=== PATIENT | female | born 1965 | race American Indian/Alaskan Native ===

== ENCOUNTER 2019-06-20 17:47 | Emergency (ER) | payer SELFPAY ==
[2019-06-20 18:02] VITALS: BP 165/83; PULSE 87; RESP 18; TEMP 36.7; O2SAT 97; BMI 29.2
[2019-06-20 18:10] VITALS: BP 167/83; BP 183/85; BP 205/83; PULSE 71; PULSE 77; PULSE 82
[2019-06-20 18:46] LABS: Basophils % 0.4 %; Eosinophils # 0.2 10^3/uL (0.0-0.8); Eosinophils % 1.9 %; Hematocrit 43.1 % (37.0-47.0); Hemoglobin 13.6 g/dL (11.5-15.3); Lymphocytes # 2.5 10^3/uL (0.8-4.8); Mean Corpuscular HGB Conc 31.6 g/dL (30.0-36.0); Mean Corpuscular Hemoglobin 26.8 pg (28.0-34.0); Mean Corpuscular Volume 84.8 fL (81-99); Mean Platelet Volume 9.7 fL (7.4-10.4); Monocytes # 0.5 10^3/uL (0.2-0.9); Monocytes % 5.2 %; Neutrophils % 65.3 %; Nucleated Red Blood Cells % 0 %; Platelet Count 299 10^3/cmm (130-400); Red Blood Count 5.08 10^6/uL (4.1-5.3); Red Cell Distribution Width 13.2 % (12.1-15.1); White Blood Count 9.1 10^3/uL (4.0-10.0)
[2019-06-20 19:06] LABS: Alanine Aminotransferase 21 U/L (0-33); Albumin Level 4.4 g/dL (3.5-5.2); Alkaline Phosphatase 89 IU/L (35-105); Anion Gap 16.1 (5-19); Aspartate Amino Transferase 16 U/L (0-32); Blood Urea Nitrogen 19 mg/dL (6-20); Calcium 9.9 mg/dL (8.5-10.5); Carbon Dioxide 29 mmol/L (22-29); Chloride 99 mmol/L (98-107); Glomerular Filtration Rate 74.5 mL/min (90-130); Glucose 91 mg/dL (65-115); Osmolality Calculated 286 mOsm/kg (285-295); Potassium 4.1 mmol/L (3.5-5.1); Sodium 140 mmol/L (136-145); Total Bilirubin 0.2 mg/dL (0.15-1.2); Total Protein 7.4 g/dL (6.6-8.7)
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
[2019-06-20 20:22] VITALS: BP 169/88; PULSE 82; RESP 18; O2SAT 100
--- NOTE | 2019-06-20 20:27 | XR_ITS ---
WS: [id number] Portable AP upright chest, 06/20/2019 Clinical Data: cough Comparison: Portable chest, 09/26/2018. Findings: No nodules, masses or effusions are seen. The heart is normal. The pulmonary vascularity is not increased. No pneumonia or pneumothorax is seen. XR/XR chest 1V portable [id number] Impression: Negative chest.
--- NOTE | 2019-06-20 20:27 | ECG_ITS ---
Measurements Intervals [place] Rate: 68 P: 65 AK: 156 QRS: 43 QRSD: 93 T: 34 QT: 406 QTc: 433 SINUS RHYTHM Compared to ECG 09/26/2018 09:32:52 ST (T wave) deviation no longer present Electronically Signed On 06-22-2019 8:59:33 CDT by Shin Bolanos M.D. [email or web address]
[2019-06-20 20:48] LABS: Troponin(5th) Baseline 8 ng/mL (0-10)
[2019-06-20 21:08] LABS: Add Urine Microscopic? NO
[2019-06-20 21:18] LABS: Bilirubin Urine Neg (NEGATIVE); Blood Urine Neg (Negative); Glucose Urine UA Norm (Normal); Ketones Urine Negative (Negative); Leukocyte Esterase Urine Negative (Negative); Nitrate Urine Negative (Negative); Protein Urine Neg (Negative); Specific Gravity, Urine 1.005 (1.005-1.030); Urine Appearance Clear (CLEAR); Urine Color Straw (Yellow); Urobilinogen Urine Norm (Negative); pH Urine 5 (5-7)
[2019-06-20 21:25] VITALS: BP 181/88; PULSE 66; RESP 18; O2SAT 100
[2019-06-20 22:18] VITALS: BP 162/77; PULSE 78; RESP 18; O2SAT 99
--- NOTE | 2019-06-20 22:27 | ECG_ITS ---
Measurements Intervals [place] Rate: 55 P: 57 WI: 156 QRS: 30 QRSD: 91 T: 10 QT: 423 QTc: [address] DEPRESSION [0.05+ mV ST DEPRESSION] Compared to ECG 09/26/2018 09:32:52 Sinus rhythm no longer present ST (T wave) deviation still present Electronically Signed On 06-22-2019 9:05:23 CDT by Shin Bolanos M.D. [email or web address]
[2019-06-20 23:00] VITALS: BP 153/88; PULSE 68; RESP 17; O2SAT 97
== END 2019-06-20 23:00 | disposition home or self-care (01) ==
PROVIDERS: Emergency Medicine; Emergency Provider Emergency Medicine
DX: R07.9 Chest pain, unspecified (principal); I10 Essential (primary) hypertension; F17.200 Nicotine dependence, unspecified, uncomplicated; Z53.29 Procedure and treatment not carried out because of patient's decision for other reasons
CPT/HCPCS: 12345; 36415; 71045; 80053; 81003; 84484; 85025; 93005; 99284

== ENCOUNTER 2020-02-03 17:47 | Emergency (ER) | payer SELFPAY ==
[2020-02-03 17:59] VITALS: BP 172/84; PULSE 91; RESP 18; TEMP 36.9; O2SAT 96; BMI 27.4
[2020-02-03 19:24] VITALS: BP 175/110; O2SAT 100
--- NOTE | 2020-02-03 19:57 | ED_ITS ---
HPI - Dental/Oral General: Chief complaint: Dental/Oral Stated complaint: Face swelling Time Seen by Provider: 02/03/20 19:17 History of Present Illness: HPI Narrative: Patient comes in for pain for the upper molar area the mouth. Left side shows facial swelling. Respirations are even. No airway obstruction is noted. Patient is managing secretions well. Patient has a history of COPD and mood disorder. Review of Systems General: Reports: 10 or more systems reviewed and unremarkable except in HPI and below ENMT: Reports: mouth pain PFSH ED PFSH: Medical History (Updated 02/03/20 @ 19:57 by RIP Elizabeth) HTN (hypertension) Social History (Updated 08/17/19 @ 08:52 by Symone Portillo LPN) Smoking and tobacco status: current every day smoker cigarettes Packs smoked per day: 1 Years cigarettes smoked: 41 Quit status (tobacco): has tried quititng Number of times tried to quit tobacco: 2 Second hand smoke exposure: No Current gender identity: Female Physical Exam Const: COMMON NORMALS: no acute distress and patient oriented x3 GENERAL APPEARANCE: cooperative HENMT: COMMON NORMALS: TM's normal bilaterally and Normal external nose present HEAD & SCALP: other (Left side facial swelling, first molar left upper jaw tenderness. Oral airway is intact. Patient manages secretions well.) NOSE: Normal external nose present TYMPANIC MEMBRANE: TM's normal bilaterally MOUTH: Normal oral and palatal mucosa present THROAT: posterior oropharynx normal Eye: GENERAL EYE: appearance normal, both eyes and all related structures Neck/C-Spine: COMMON NORMALS: full ROM Lymph: LYMPHATIC: no lymphadenopathy noted Chest: COMMONS NORMALS: normal inspection of the chest Resp: COMMON NORMALS: normal respiratory effort EFFORT & INSPECTION: Yes able to speak in complete sentences Cardio: COMMON NORMALS: regular rate and regular rhythm RATE: regular rate RHYTHM: regular rhythm GI: COMMON NORMALS: non-tender Back/Pelvis: COMMON NORMALS: thoracic and lumbar spine normal to inspection Extremity: COMMON NORMALS: normal to inspection Neuro: COMMON NORMALS: patient oriented x3 and moves all extremities Psych: COMMON NORMALS: mental status grossly normal and cooperative Skin: COMMON NORMALS: no rashes or lesions noted GENERAL SKIN EXAM: no rashes or lesions noted Course Vital Signs: Vital signs: Vital Signs Temperature 98.4 F 02/03/20 17:59 Pulse Rate 91 02/03/20 17:59 Respiratory Rate 18 02/03/20 17:59 Blood Pressure 175/110 02/03/20 19:24 Pulse Oximetry 100 02/03/20 19:24 MDM - Dental/Oral MDM Narrative: Medical decision making narrative: Patient comes in with facial swelling and dental pain. On exam we note a dental abscess to the left upper first molar area. Posterior oropharynx is open without any signs of obstruction. Patient is managing secretions well. Differential diagnosis includes but not limited to dental abscess, retropharyngeal abscess, cellulitis of the face. Patient has a noticeable dental abscess. Will treat with antibiot ic. Change antibiotic from amoxicillin to clindamycin 304 times a day. Patient was given 1 dose of Decadron to help with swelling. Patient was recommended to follow-up with dentist for definitive care. Patient reported understanding. Discharge Plan Discharge Patient Disposition: Home Clinical Impression: Dental abscess Condition: Stable Prescriptions: New clindamycin HCl 300 mg capsule 300 mg PO QID 7 Days Qty: 28 RF: 0 ketorolac 10 mg tablet 10 mg PO Q6H PRN (Reason: pain) 5 Days Qty: 14 RF: 0 No Action lisinopril 20 mg tablet 20 mg PO DAILY RF: 0 calcium carbonate [Tums] 200 mg calcium (500 mg) tablet,chewable 200 mg PO BID RF: 0 ibuprofen 200 mg capsule 200 mg PO Q6H PRNRF: 0 B-12 Compliance 1,000 mcg/mL kit 1,000 mcg IM ONCE Qty: 1 RF: 0 hydrochlorothiazide 25 mg tablet 25 mg PO DAILY RF: 0 oxcarbazepine [Trileptal] 150 mg tablet 150 mg PO BID Qty: 60 RF: 2 Discharge Orders: Discharge Order (Routine); Ordered 02/03/20 Ordered By: Rafat Cohen Discharge Diet: Usual diet Discharge Activity: Increase activity as tolerated Patient Instructions: Dental Abscess (ED) Activity Restrictions/Additional Instructions: Stop amoxicillin. Take clindamycin 4 times a day as directed. Use acetaminophen for further pain relief. Use ketorolac 4 times a day for further pain relief. Good oral care. Follow-up with dentist for further care. Return to the emergency department for new concerns. Coding Level of Care Code ED Medical Housekeeper for Asa Ortiz
[2020-02-03 20:03] VITALS: BP 123/84; PULSE 68; RESP 18; O2SAT 99
== END 2020-02-03 20:04 | disposition home or self-care (01) ==
PROVIDERS: Emergency Provider Nurse Practitioner Family
DX: K04.7 Periapical abscess without sinus (principal); I10 Essential (primary) hypertension; F17.210 Nicotine dependence, cigarettes, uncomplicated
CPT/HCPCS: 12345; 99281; 99282

== ENCOUNTER 2020-05-18 22:14 | Emergency (ER) | payer OTHER, SELFPAY ==
[2020-05-18 22:19] VITALS: BP 162/84; PULSE 92; RESP 16; TEMP 37.1; O2SAT 98; BMI 28.0
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
[2020-05-19 00:42] VITALS: BP 150/82; PULSE 70; RESP 18; O2SAT 93
== END 2020-05-19 00:42 | disposition home or self-care (01) ==
PROVIDERS: Emergency Provider Emergency Medicine
DX: S06.0X0A Concussion without loss of consciousness, initial encounter (principal); S30.0XXA Contusion of lower back and pelvis, initial encounter; I10 Essential (primary) hypertension; F17.210 Nicotine dependence, cigarettes, uncomplicated; Y04.8XXA Assault by other bodily force, initial encounter; Y99.0 Civilian activity done for income or pay
CPT/HCPCS: 12345; 70450; 72131; 73080; 74176; 99281; 99283

== ENCOUNTER 2020-09-05 14:40 | Outpatient (CLI) | payer OTHER, SELFPAY ==
--- NOTE | 2020-09-05 14:49 | MM_ITS ---
WS: [id number] BILATERAL SCREENING DIGITAL MAMMOGRAM WITH CAD HISTORY: SCREENING COMPARISON: 04/28/2016 and 04/19/2015 Bilateral CC and MLO views submitted. Computer aided detection analyzed. Breast composition: The breasts are almost entirely fatty. No suspicious masses, microcalcifications or architectural distortion. Dense coarse calcification incompletely visualized due to its posterior position within the LEFT breast has been present on prior studies. MM/[place] [id number] IMPRESSION: BI-RADS: 2-Benign FOLLOW UP: 1 Year Follow-up
== END 2020-09-05 14:41 | disposition home or self-care (01) ==
LOC: RADSHAW 14:47
PROVIDERS: PCP Family Medicine; Visit Provider Family Medicine
DX: Z12.31 Encounter for screening mammogram for malignant neoplasm of breast (principal)
CPT/HCPCS: 77067

== ENCOUNTER 2020-09-12 07:17 | Outpatient (CLI) | payer OTHER, SELFPAY ==
--- NOTE | 2020-09-12 07:34 | US_ITS ---
WS: [id number] ULTRASOUND ABDOMEN LIMITED CLINICAL INFORMATION: EPIGASTRIC ABDOMINAL PAIN COMPARISON: None. FINDINGS: Liver Size: Enlarged Craniocaudal length: 17.1 cm. Echogenicity: Coarse with fatty infiltration Surface nodularity: None. Mass (size and location): None. Bile ducts Intrahepatic ducts: Normal. Common bile duct diameter: 0.6 cm. Gallbladder Cholelithiasis Gallstones: Present Gallbladder sludge: None. Gallbladder wall thickening: Wall difficult to measure due to shadowing. Pericholecystic fluid: None. Sonographic Gerardo sign: Absent. Pancreas Normal as visualized. Right kidney: Simple right renal cysts measuring 1.2 x 1.3 x 1.4 cm superior pole and 2.6 x 2.9 x 2.6 cm in the inferior pole. Hydronephrosis: None. Size: 11.3 cm x 3.5 cm x 4.9 cm. Abdominal aorta and IVC Visualized portions are normal. Ascites: None. US/US abdomen limited [id number] IMPRESSION: 1. Hepatomegaly with diffuse infiltration. 2. Dense cholelithiasis with shadowing. Numerous gallbladder calculi. Gallblad elaina wall not well visualized due to dense shadowing. No pericholecystic fluid. 3. Prominent common bile duct measuring 6.2 mm. This can be further evaluated with MRCP. 4. Simple right renal cysts.
== END 2020-09-12 07:18 | disposition home or self-care (01) ==
PROVIDERS: PCP Family Medicine; Visit Provider Family Medicine
DX: R10.13 Epigastric pain (principal); R16.0 Hepatomegaly, not elsewhere classified; K76.89 Other specified diseases of liver; K80.20 Calculus of gallbladder without cholecystitis without obstruction; Q61.02 Congenital multiple renal cysts
CPT/HCPCS: 76705

== ENCOUNTER 2020-09-12 09:30 | Outpatient (CLI) | payer SELFPAY ==
--- NOTE | 2020-09-12 09:30 | CT_ITS ---
WS: [id number] CT ABDOMEN AND PELVIS WITH CONTRAST HISTORY: N28.89 - Other specified disorders of kidney and ureter TECHNIQUE: Imaging performed of the abdomen and pelvis with IV contrast. Single phase imaging of the abdomen. Coronal and sagittal reformats are submitted. All CT scans at [facility] use at least one of these dose optimization techniques: automated exposure control; mA and/or kV adjustment per patient size (includes targeted exams where dose is matched to clinical indication); or iterativ e reconstruction. IV CONTRAST: Omnipaque 300; 95 mL IV. Oral contrast: Yes. DLP: 1153.1 mGycm COMPARISON: 05/18/2020 Lower thorax: Lung bases are clear. Heart is normal size. Small hiatal hernia. Liver/biliary system: Normal size with no intrahepatic dilatation. Gallbladder: Numerous large stones filling the gallbladder lumen. No adjacent inflammation or wall th ickening. Similar to the prior study. No bile duct dilatation. Pancreas: Normal size pancreas and pancreatic duct. No adjacent inflammation. Spleen: Normal size spleen. No mass or infarct. Adrenal glands: Normal. Right kidney: Several cysts are present in the RIGHT kidney. There is an exophytic low-attenuation ma ss measuring 3.2 x 2.5 from the lateral RIGHT kidney. Hounsfield units are slightly elevated. No sign ificant increase in size since the prior CT of 05/18/2020. Left kidney: Normal. Aorta: Mild atherosclerosis with no aneurysm. Lymphadenopathy: None. Free fluid: None. GI tract: Normal appendix. No GI tract obstruction. No wall thickening or inflammation. Abdominal wall: Unremarkable abdominal wall. No hernia. Pelvis: No free fluid or adenopathy within the pelvis. Prior hysterectomy. Bones: Unremarkable. CT/CT abdomen pelvis w con* [id number] IMPRESSION: 1. Cholelithiasis without acute cholecystitis. Numerous stones are present in the gallbladder. 2. No ascites or adenopathy. 3. No change in the exophytic low-attenuation mass from the RIGHT kidney measu ring 3.2 x 2.5 cm. Mass was noted to be a cyst on a recent ultrasound.
[2020-09-12] MEDS: iohexol 300 mg/mL 50 mL Btl PO (10:20)
[2020-09-12] MEDS: iohexol 300 mg/mL 100 mL Btl IV (11:29)
== END 2020-09-12 09:31 | disposition home or self-care (01) ==
PROVIDERS: PCP Family Medicine; Visit Provider Surgery
DX: N28.89 Other specified disorders of kidney and ureter (principal); K80.20 Calculus of gallbladder without cholecystitis without obstruction
CPT/HCPCS: 74177; Q9967

== ENCOUNTER → 2020-09-21 07:42 | Outpatient (BNVA) | payer OTHER, SELFPAY | PROVIDERS: PCP Family Medicine; Visit Provider Urology | DX: N28.89 Other specified disorders of kidney and ureter (principal); N28.1 Cyst of kidney, acquired | CPT/HCPCS: 81003 ==

== ENCOUNTER 2020-12-19 14:12 | Outpatient (CLI) | payer OTHER, SELFPAY ==
--- NOTE | 2020-12-19 14:20 | CT_ITS ---
WS: [id number] LDCT LUNG CANCER SCREENING TECHNIQUE: Noncontrast CT of the chest with coronal and sagittal reformatted images. CLINICAL INFORMATION: NICOTINE DEPENDENCE, CIGARETTES COMPARISON: None. DLP: 45.87 mGy.cm DIvol: 1.[address] scans at [facility] use at least one of these dose optimization techniques: automat ed exposure control; mA and/or kV adjustment per patient size (includes targeted exams where dose is matched to clinical indication); or iterative reconstruction. FINDINGS: No acute pulmonary infiltrates. No mediastinal or hilar lymphadenopathy. No focal pneumonia or pleura l fluid. No axillary lymphadenopathy. 3 mm calcified nodule right upper lobe. CT/CT lung screening [id number] IMPRESSION: LUNG-RADS: 2-Benign Appearance or Behavior FOLLOW UP: 12 Month: Continue annual screening with LDCT
== END 2020-12-19 14:13 | disposition home or self-care (01) ==
LOC: RAD 14:18
PROVIDERS: PCP Family Medicine; Visit Provider Family Medicine
DX: F17.200 Nicotine dependence, unspecified, uncomplicated (principal); Z12.2 Encounter for screening for malignant neoplasm of respiratory organs
CPT/HCPCS: 71271

== ENCOUNTER 2021-02-01 13:20 | Outpatient (CLI) | payer OTHER, SELFPAY ==
--- NOTE | 2021-02-01 13:27 | XR_ITS ---
WS: [id number] Lumbar spine, 3 views, 02/01/2021 Clinical Data: BACK PAIN,LUMBAR,CHRONIC Comparison: Lateral lumbar spine, 02/15/2014. Findings: No compression fractures or subluxation is seen. There is minimal disc narrowing at L5-S1.. The trans verse processes and SI joints are normal. There are numerous gallstones in the right upper quadrant. XR/XR lumbar spine 2-3V* [id number] Impression: 1. Minimal degenerative disc narrowing at L5-S1. 2. Cholelithiasis.
== END 2021-02-01 13:21 | disposition home or self-care (01) ==
PROVIDERS: PCP Family Medicine; Visit Provider Family Medicine
DX: M54.50 Low back pain, unspecified (principal); G89.29 Other chronic pain; K80.20 Calculus of gallbladder without cholecystitis without obstruction
CPT/HCPCS: 72100

== ENCOUNTER 2021-02-13 12:47 | Outpatient (RCR) | payer OTHER, SELFPAY | END 2021-03-12 23:59 | disposition home or self-care (01) | LOC: SPT 12:47 | PROVIDERS: PCP Family Medicine; Referring Provider Family Medicine; Visit Provider Family Medicine | DX: M54.50 Low back pain, unspecified (principal) | CPT/HCPCS: 97110; 97161 ==

== ENCOUNTER → 2021-04-19 15:21 | Outpatient (BNVA) | payer OTHER, SELFPAY | PROVIDERS: PCP Family Medicine; Visit Provider Obstetrics & Gynecology | DX: Z12.4 Encounter for screening for malignant neoplasm of cervix (principal) | CPT/HCPCS: 87624 ==

== ENCOUNTER 2021-05-30 06:32 | Emergency (ER) | payer OTHER, SELFPAY ==
[2021-05-30 06:40] VITALS: PULSE 77; RESP 18; TEMP 36.6; O2SAT 97; BMI 26.5
--- NOTE | 2021-05-30 06:47 | XRR_ITS ---
PROCEDURE INFORMATION: Exam: XR Chest Exam date and time: 05/30/2021 6:47 AM Age: 56 years old Clinical indication: Angina; Prior surgery; Surgery date: 6+ months; Surgery type: Breast reduction; Patient HX: Chest pain back pain since last pm; Additional info: Dyspnea/cough TECHNIQUE: Imaging protocol: XR of the chest. Views: 1 view. COMPARISON: CR XR chest 1V portable [id number] 06/20/2019 8:45 PM FINDINGS: Lungs: Mild interstitial prominence without acute airspace disease. Pleural spaces: No pleural effusion. Heart/Mediastinum: Normal configuration of the heart. Bones/joints: Unremarkable. When correlating with the previous study, no significant interval changes are present. XR/XR chest 1V portable [id number] IMPRESSION: No acute airspace or pleural disease.
[2021-05-30 07:11] LABS: Basophils # 0.1 10^3/uL (0.0-0.1); Basophils % 0.5 %; Eosinophils # 0.3 10^3/uL (0.0-0.8); Eosinophils % 2.5 %; Hematocrit 44.3 % (37.0-47.0); Hemoglobin 14.4 g/dL (11.5-15.3); Lymphocytes # 2.9 10^3/uL (0.8-4.8); Mean Corpuscular HGB Conc 32.5 g/dL (30.0-36.0); Mean Corpuscular Hemoglobin 28.1 pg (28.0-34.0); Mean Corpuscular Volume 86.5 fl (81-99); Mean Platelet Volume 9.2 fL (7.4-10.4); Monocytes # 0.7 10^3/uL (0.2-0.9); Monocytes % 5.7 %; Neutrophils # 8.02 10^3/uL (1.8-7.7); Nucleated Red Blood Cells % 0 %; Platelet Count 331 10^3/cmm (130-400); Red Blood Count 5.12 10^6/uL (4.1-5.3); Red Cell Distribution Width 13.2 % (12.1-15.1)
--- NOTE | 2021-05-30 07:13 | W.ED.CHESTPA ---
HPI - Chest Pain General: Chief Complaint: Chest Pain Stated Complaint: CHEST PAIN, abd pain, back pain, high bp Time Seen by Provider: 05/30/21 06:35 Source: patient Mode of arrival: ambulatory Limitations: no limitations History of Present Illness: 56-year-old female presents emergency room with complaint of chest discomfort. She states it began last night around midnight she was repositioning herself in bed and felt a sharp pain on the left side of her chest. Since then it is continued. She also been coughing more often recently which she relates to weather changes and allergies. She also has some mild nausea associated with this. She complains of back pain which seems to be also musculoskeletal in her low back. Much of her pain is reproducible with movement and with palpation particularly in the anterior chest MD complaint: chest pain Onset (ago): hour(s) Timing of current episode: episodic Prior episodes: No Onset: during rest Pain location: left chest Pain radiation: none Severity: severe Quality: sharp Relieving factors: rest, remaining still and other (Massaging anterior chest wall) Exacerbating factors: palpation (Point tenderness) and movement Associated symptoms: Reports abdominal pain and other (Back pain nausea); Deny dyspnea or fever(s) Treatment prior to arrival: other (Antihypertensives) Review of Systems Const: Reports: change in appetite; Denies: fever(s), chills, body aches, fatigue or malaise ENMT: Denies: throat pain, ear or mastoid pain, nasal discharge or nasal congestion Card: Reports: chest pain; Denies: edema, dyspnea on exertion or orthopnea Resp: Reports: non-productive cough (Mostly unchanged from chronic baseline); Denies: dyspnea or productive cough GI: Reports: abdominal pain : Denies: flank pain, difficulty voiding, dysuria, urinary frequency or urinary urgency Skin/Breast: Denies: rash or pruritus PFSH ED PFSH: Medical History Benign cyst of right kidney Deficient knowledge of leg surgery home care at age 1 HTN (hypertension) Surgical History H/O bilateral breast reduction surgery H/O oral surgery teeth extraction H/O: Family History Father , at age 78 Heart disease Son Anesthesia complication Hypertension Denies family history of Colon cancer Ovarian cancer Diabetes Clotting disorder Hyperlipidemia Breast cancer Bleeding disorder Uterine cancer Thyroid disease Stroke Social History Marital status: Physical Exam Const: GENERAL APPEARANCE: cooperative and comfortable ORIENTATION/CONSCIOUSNESS: Yes awake, Yes oriented to person, Yes oriented to place and Yes oriented to time HENMT: COMMON NORMALS: normocephalic, atraumatic and hearing grossly normal bilaterally HEAD & SCALP: normocephalic and atraumatic Neck/C-Spine: COMMON NORMALS: no JVD Chest: CHEST: Yes tenderness sternum (Left upper) Resp: COMMON NORMALS: normal respiratory effort, No retractions, No use of accessory muscles and clear to auscultation bilaterally AUSCULTATION: clear to auscultation bilaterally Cardio: COMMON NORMALS: no JVD, regular rate, regular rhythm and No murmurs present (Cardio) RATE: regular rate RHYTHM: regular rhythm GI: COMMON NORMALS: Soft to palpation and No hepatosplenomegaly present AUSCULTATION: Yes normoactive bowel sounds PALPATION: Yes Soft to palpation, No Tenderness to palpation present (GI), No Guarding due to palpation present (GI) and Yes No hepatosplenomegaly present Extremity: COMMON NORMALS: normal to inspection, capillary refill normal, no clubbing, cyanosis or edema, no calf tenderness and no pedal edema Neuro: SENSORIUM/ORIENTATION: Yes oriented to person, Yes oriented to place and Yes oriented to time Skin: COMMON NORMALS: no rashes or lesions noted GENERAL SKIN EXAM: no rashes or lesions noted Course Vital Signs: Vital signs: Vital Signs Temperature 98.0 F 05/30/21 09:59 Pulse Rate 64 05/30/21 09:59 Respiratory Rate 14 05/30/21 09:59 Blood Pressure 155/83 05/30/21 09:59 Pulse Oximetry 98 05/30/21 09:59 MDM - Chest Pain Medical Decision Making Pain reproducible with palpation across anterior chest wall and with deep inspiration. Discharge home diclofenac Medrol Dosepak. Follow-up with primary care doctor within the next week wheezing worsening or changes symptoms otherwise return to the emergency room. Medical Records I reviewed the patient's medical records. Lab Data I reviewed the patient's lab results. : 05/30/21 06:52 05/30/21 06:52 Radiology Impressions Chest X-Ray 05/30/21 06:47 IMPRESSION: No acute airspace or pleural disease. Laboratory Results WBC 12.0 10^3/uL (4.0-10.0) H 05/30/21 06:52 RBC 5.12 10^6/uL (4.1-5.3) 05/30/21 06:52 Hgb 14.4 g/dL (11.5-15.3) 05/30/21 06:52 Hct 44.3 % (37.0-47.0) 05/30/21 06:52 MCV 86.5 fl (81-99) 05/30/21 06:52 MCH 28.1 pg (28.0-34.0) 05/30/21 06:52 MCHC 32.5 g/dL (30.0-36.0) 05/30/21 06:52 RDW 13.2 % (12.1-15.1) 05/30/21 06:52 Plt Count 331 10^3/cmm (130-400) 05/30/21 06:52 MPV 9.2 fL (7.4-10.4) 05/30/21 06:52 Neut % (Auto) 67.0 % 05/30/21 06:52 Lymph % (Auto) 24.0 % 05/30/21 06:52 [place] % (Auto) 5.7 % 05/30/21 06:52 Eos % (Auto) 2.5 % 05/30/21 06:52 Baso % (Auto) 0.5 % 05/30/21 06:52 Neut # (Auto) 8.02 10^3/uL (1.8-7.7) H 05/30/21 06:52 Lymph # (Auto) 2.9 10^3/uL (0.8-4.8) 05/30/21 06:52 [place] # (Auto) 0.7 10^3/uL (0.2-0.9) 05/30/21 06:52 Eos # (Auto) 0.3 10^3/uL (0.0-0.8) 05/30/21 06:52 Baso # (Auto) 0.1 10^3/uL (0.0-0.1) 05/30/21 06:52 Nucleated RBC % (auto) 0 % 05/30/21 06:52 Nucleated RBCs # 0.0 /100WBC 05/30/21 06:52 Sodium 137 mmol/L (136-145) 05/30/21 06:52 Potassium 3.4 mmol/L (3.5-5.1) L 05/30/21 06:52 Chloride 98 mmol/L (98-107) 05/30/21 06:52 Carbon Dioxide 26 mmol/L (22-29) 05/30/21 06:52 Anion Gap 16.4 (5-19) 05/30/21 06:52 BUN 9 mg/dL (6-20) 05/30/21 06:52 Creatinine 0.7 mg/dL (0.5-0.9) 05/30/21 06:52 GFR Calculation 86.2 mL/min (90-130) L 05/30/21 06:52 Glucose 109 mg/dL (65-115) 05/30/21 06:52 Calculated Osmolality 283 mOsm/kg (285-295) L 05/30/21 06:52 Calcium 9.5 mg/dL (8.5-10.5) 05/30/21 06:52 Total Bilirubin 0.2 mg/dL (0.15-1.2) 05/30/21 06:52 AST 12 U/L (0-32) 05/30/21 06:52 ALT 11 U/L (0-33) 05/30/21 06:52 Alkaline Phosphatase 94 IU/L (35-105) 05/30/21 06:52 Troponin T Baseline 6 ng/L (0-10) 05/30/21 06:52 Troponin T 120 Minute 6.00 ng/L (0-10) 05/30/21 09:03 Delta Troponin T 0 ABS# (0-10) 05/30/21 09:03 Total Protein 7.3 g/dL (6.6-8.7) 05/30/21 06:52 Albumin 4.5 g/dL (3.5-5.2) 05/30/21 06:52 Globulin 2.8 g/dL (1.3-4.6) 05/30/21 06:52 Discharge Plan Discharge Patient Disposition: Home Clinical Impression: Acute chest wall pain Condition: Stable Prescriptions: New diclofenac sodium 75 mg tablet,delayed release (DR/EC) 75 mg PO Q12H PRN (Reason: pain) Qty: 20 0RF Medrol ([place]) 4 mg tablets,dose pack See Rx Instructions .ROUTE .COMPLEX Qty: 21 0RF Rx Instructions: orally per package directions Discontinued ibuprofen 200 mg capsule 200 mg PO Q6H PRN (Reason: Pain) 0RF No Action lisinopril 20 mg tablet 20 mg PO DAILY PRN (Reason: Blood Pressure) 0RF calcium carbonate [Tums] 200 mg calcium (500 mg) tablet,chewable 200 mg PO BID PRN (Reason: Pain) 0RF albuterol sulfate 90 mcg/actuation Hfa Aerosol Inhaler 1 - 2 puff INHALATION Q4H PRN (Reason: Shortness Of Breath) 0RF Discharge Orders: Discharge ED (Routine); Ordered 05/30/21 Ordered By: Kulwant Casper Referrals: Oscar Mckeon MD [Primary Care Provider] - Discharge Diet: Usual diet Discharge Activity: Limit activity as instructed Patient Instructions: Opioid Safety Activity Restrictions/Additional Instructions: Use diclofenac as needed. Use albuterol as needed for the cough. Steroid taper follow-up with your primary care doc within the next week. Coding Level of Care Code ED Foot Miter Operator for Asa Fwd Exam Comprehensive
[2021-05-30 07:28] LABS: Troponin(5th) Baseline 6 ng/L (0-10)
[2021-05-30 07:31] LABS: Alanine Aminotransferase 11 U/L (0-33); Albumin Level 4.5 g/dL (3.5-5.2); Alkaline Phosphatase 94 IU/L (35-105); Anion Gap 16.4 (5-19); Aspartate Amino Transferase 12 U/L (0-32); Blood Urea Nitrogen 9 mg/dL (6-20); Calcium 9.5 mg/dL (8.5-10.5); Carbon Dioxide 26 mmol/L (22-29); Chloride 98 mmol/L (98-107); Globulin 2.8 g/dL (1.3-4.6); Glomerular Filtration Rate 86.2 mL/min (90-130); Glucose 109 mg/dL (65-115); Osmolality Calculated 283 mOsm/kg (285-295); Potassium 3.4 mmol/L (3.5-5.1); Sodium 137 mmol/L (136-145); Total Bilirubin 0.2 mg/dL (0.15-1.2); Total Protein 7.3 g/dL (6.6-8.7)
[2021-05-30] MEDS: ketorolac 30 mg/mL INJ IVP (07:35)
[2021-05-30] MEDS: ondansetron 2 mg/ML SDV 2 mL 4 MG IVP (07:35)
[2021-05-30] MEDS: aspirin 81 mg Chew Tablet 324 MG PO (07:35)
--- NOTE | 2021-05-30 08:47 | ECG_ITS ---
[facility] Test Date: 2021-05-30 Pat Name: Radha Camargo Department: Room: Gender: Female Laboratory Engineer: : 1965 Requested By: Kulwant Odom Order Number: [id number] Gabrielle MD: David Ramos M.D. Measurements Intervals [place] Rate: 46 P: 68 MA: 158 QRS: 42 QRSD: 95 T: 40 QT: 481 QTc: 422 Interpretive Statements SINUS BRADYCARDIA Compared to ECG 05/30/2021 06:57:49 Sinus rhythm no longer present Electronically Signed On 05-30-2021 20:53:11 MEDICAL LIAISON by David Ramos M.D. [id number]
[2021-05-30 09:59] VITALS: BP 155/83; PULSE 64; RESP 14; TEMP 36.7; O2SAT 98
[2021-05-30 10:10] LABS: Troponin 5 2HR Delta 0 ABS# (0-10)
--- NOTE | 2021-05-30 12:47 | ECG_ITS ---
[facility] Test Date: 2021-05-30 Pat Name: Radha Camargo Department: Room: Gender: Female Farm Machine Tender: : 1965 Requested By: Kulwant Odom Order Number: [id number] Gabrielle MD: David Ramos M.D. Measurements Intervals [place] Rate: 67 P: 66 ND: 158 QRS: 43 QRSD: 90 T: 37 QT: 414 QTc: 438 Interpretive Statements SINUS RHYTHM POSSIBLE LEFT ATRIAL ENLARGEMENT [-0.1mV P-WAVE IN V1/V2] No previous ECG available for comparison Electronically Signed On 05-30-2021 20:53:15 LAP MACHINE TENDER by David Ramos M.D. [id number]
== END 2021-05-30 10:00 | disposition home or self-care (01) ==
PROVIDERS: Emergency Provider Family Medicine; PCP Family Medicine
DX: R07.89 Other chest pain (principal); I10 Essential (primary) hypertension
CPT/HCPCS: 71045; 80053; 84484; 85025; 93005; 96374; 96375; 99284; J1885; J2405

== ENCOUNTER 2022-01-07 13:08 | Emergency (ER) | payer SELFPAY ==
[2022-01-07 13:10] VITALS: BP 178/78; PULSE 68; RESP 16; TEMP 36.9; O2SAT 98; BMI 26.5
--- NOTE | 2022-01-07 14:10 | XR_ITS ---
WS: [id number] Exam: XR lumbar spine 2-3V* [id number] Date/Time of Exam: 01/07/2022 2:10 PM Reason For Exam: pain after dog attack Comparison 02/01/2021. No acute fracture or dislocation. Disc spaces are preserved. Posterior elements are intact. Numerous large faceted calcifications seen in the right upper abdomen are most likely gallstones. XR/XR lumbar spine 2-3V* [id number] IMPRESSION: 1. No fracture or dislocation. Minimal DJD. 2. Incidentally noted are multiple large gallstones.
--- NOTE | 2022-01-07 14:10 | XR_ITS ---
WS: [id number] Exam: XR tibia fibula LT 2V [id number] Date/Time of Exam: 01/07/2022 2:27 PM Reason For Exam: fall and pain No fracture or dislocation. Normal soft tissue structures. XR/XR tibia fibula LT 2V [id number] IMPRESSION: 1. No acute fracture or dislocation.
--- NOTE | 2022-01-07 15:02 | ED_ITS ---
HPI - Extremity Problem General: Chief complaint: Extremity Injury, Lower Stated complaint: Dog Bite Time Seen by Provider: 01/07/22 13:32 History of Present Illness: This is a 56-year-old patient who is in today for leg pain back pain. She reports that she was breaking up a dog fight and she fell down to the ground on her knees and scraped her legs. She reports that her back is feeling sore she has chronic back pain but it is feeling like its twisted. She denies any numbness or tingling of her extremities. She denies any loss of bowel or bladder control. She denies that she was bitten by the dog. She reports that she is up-to-date on tetanus. Associated symptoms: Deny fever(s) Review of Systems Const: Denies: fever(s) or chills Musc: Reports: extremity pain (Left lower extremity pain) Skin/Breast: Reports: other (Small superficial abrasions left lower extremity- no bleeding) [facility] ED PFSH: Medical History Benign cyst of right kidney Deficient knowledge of leg surgery home care at age 1 HTN (hypertension) Psychiatric care Surgical History H/O bilateral breast reduction surgery H/O oral surgery teeth extraction H/O: x 2 Family History Father , at age 78 Heart disease Son Anesthesia complication Hypertension Denies family history of Colon cancer Ovarian cancer Diabetes Clotting disorder Hyperlipidemia Breast cancer Bleeding disorder Uterine cancer Thyroid disease Stroke Social History Smoking and tobacco status: current every day smoker cigarettes Years cigarettes smoked: 44 Smoking risk assessment/counseling performed?: No Alcohol intake: never Desire information about alcohol rehabilitation?: No Counseling given: No Desire information about substance/drug rehabilitation?: No Counseling given: No Marital status: Physical Exam Const: COMMON NORMALS: no acute distress, patient oriented x3 and alert Resp: COMMON NORMALS: normal respiratory effort and No use of accessory muscles Back/Pelvis: OTHER: Minor tenderness to palpation bilateral lumbar paraspinal musculature. No obvious bony or soft tissue deformities appreciated. Extremity: OTHER: Left lower extremity there are a couple superficial abrasions noted to the arshad and the lateral calf. No obvious foreign bodies. Patient is walking with a slight limp however she is able to bear weight on the leg. No obvious bony deformity appreciated. Neuro: COMMON NORMALS: patient oriented x3 SENSORIUM/ORIENTATION: Yes alert Course Vital Signs: Vital signs: Vital Signs Temperature 98.5 F 01/07/22 13:10 Pulse Rate 64 01/07/22 15:38 Respiratory Rate 16 01/07/22 15:38 Blood Pressure 178/78 01/07/22 13:10 Pulse Oximetry 99 01/07/22 15:38 Oxygen Delivery Me thod 01/07/22 13:10 MDM - Extremity (Nontraumatic) Medical Decision Making Client is in today after having fallen trying to break up a dog fight. She reports that she has abrasions on her leg and also may be twisted her back. She does offer that she has chronic back problems. She denies any paresthesias, weakness, loss of bowel or bladder control. Physical exam findings reveal superficial abrasions noted to her left lower leg. No obvious bony or soft tissue deformity noted to her low back. X-ray of lumbar spine and also tib-fib are both negative for any acute fracture or dislocation incidental noting on her lumbar spine she has multiple large gallstones. I did advise her of the gallstones advised her if she should have any issues follow-up with her primary care provider. We discussed keeping the wounds clean and dry at home. Return to the emergency department as needed for new or worsening symptoms. Lab Data Radiology Impressions Lumbar Spine X-Ray 01/07/22 14:10 IMPRESSION: 1. No fracture or dislocation. Minimal DJD. 2. Incidentally noted are multiple large gallstones. Tibia/Fibula X-Ray 01/07/22 14:10 IMPRESSION: 1. No acute fracture or dislocation. Discharge Plan Discharge Patient Disposition: Home Clinical Impression: Asymptomatic gallstones, Acute leg pain, Low back pain Contusion Qualifiers: Contusion area: lower leg Condition: Stable Prescriptions: No Action calcium carbonate [Tums] 200 mg calcium (500 mg) tablet,chewable 200 mg PO BID PRN (Reason: Pain) hydroxyzine pamoate 25 mg capsule 25 mg PO .q hs PRN (Reason: anxiety) Qty: 30 2RF Rx Instructions: Take one capsule at bedtime, if needed, for anxiety ibuprofen 800 mg tablet 800 mg PO Q8H PRN oxycodone-acetaminophen 5-325 mg tablet 1 tab PO Q4H PRN (Reason: pain) 4 Days Qty: 20 0RF lisinopril 20 mg tablet 20 mg PO DAILY PRN (Reason: Blood Pressure) Qty: 30 0RF albuterol sulfate 90 mcg/actuation Hfa Aerosol Inhaler 1 - 2 puff INHALATION Q4H PRN (Reason: Shortness Of Breath) Discharge Orders: Discharge ED (Routine); Ordered 01/07/22 Ordered By: Thais Pickett Discharge Diet: Usual diet Discharge Activity: Increase activity as tolerated Patient Instructions: Contusion Activity Restrictions/Additional Instructions: Keep your abrasions clean and dry. Use alternating ice and heat to help with discomfort to your low back and also your leg. Follow-up with your primary care provider next week. Return to the ER as needed for new or worsening symptoms. Stand Alone Forms: Work/School Release Coding Level of Care Code ED Psychiatric Aides Teacher for Asa Ortiz
[2022-01-07 15:38] VITALS: PULSE 64; RESP 16; O2SAT 99
== END 2022-01-07 15:39 | disposition home or self-care (01) ==
PROVIDERS: Emergency Provider Nurse Practitioner Family
DX: M54.50 Low back pain, unspecified (principal); S80.812A Abrasion, left lower leg, initial encounter; K80.80 Other cholelithiasis without obstruction; F17.210 Nicotine dependence, cigarettes, uncomplicated; I10 Essential (primary) hypertension; W18.30XA Fall on same level, unspecified, initial encounter
CPT/HCPCS: 72100; 73590; 99283

== ENCOUNTER → 2022-03-24 14:26 | Outpatient (BNVA) | payer SELFPAY | PROVIDERS: Visit Provider Family Medicine | DX: I10 Essential (primary) hypertension (principal); R53.83 Other fatigue | CPT/HCPCS: 80053; 80061; 84443; 85025; 87086 ==

== ENCOUNTER 2022-06-17 23:24 | Emergency (ER) | payer SELFPAY ==
[2022-06-17 23:34] VITALS: BP 259/92; PULSE 56; RESP 16; TEMP 36.7; O2SAT 99; BMI 28.0
--- NOTE | 2022-06-17 23:34 | W.ED.ABDPA2 ---
HPI - Abdominal Pain General: Chief Complaint: Abdominal Pain Stated Complaint: back/abd pain Time Seen by Provider: 06/17/22 23:34 History of Present Illness: 57-year-old female comes in today with complaints of abdominal pain radiating to the back. Patient has a history of renal stones and is concerned she is trying to pass a kidney stone patient also has a history of blood pressure problems, PTSD, chronic back pain, COPD, borderline personality, mood disorder, and nicotine dependence. Patient reports this evening about 7:00 she started having abdominal pain radiating to the back. Patient's had no abdominal surgeries 2 C-sections. Patient reports surgery on the foot due to a foreign body but no other significant medical problems. Patient takes lisinopril for her blood pressure and did take the medication today. Associated Symptoms: Reports nausea; Denies constipation, diarrhea, fever(s) and vomiting Review of Systems Const: Denies: fever(s) Eyes: Denies: change in vision Card: Reports: chest pain Resp: Denies: dyspnea GI: Reports: abdominal pain and nausea; Denies: vomiting, diarrhea or constipation : Reports: flank pain Skin/Breast: Denies: rash Neuro: Denies: headache(s) PFSH ED PFSH: Medical History Benign cyst of right kidney Deficient knowledge of leg surgery home care at age 1 HTN (hypertension) Psychiatric care Surgical History H/O bilateral breast reduction surgery H/O oral surgery teeth extraction H/O: x 2 Family History Father , at age 78 Heart disease Son Anesthesia complication Hypertension Denies family history of Colon cancer Ovarian cancer Diabetes Clotting disorder Hyperlipidemia Breast cancer Bleeding disorder Uterine cancer Thyroid disease Stroke Social History Smoking and tobacco status: current every day smoker cigarettes Years cigarettes smoked: 44 Smoking risk assessment/counseling performed?: No Alcohol intake: never Desire information about alcohol rehabilitation?: No Counseling given: No Desire information about substance/drug rehabilitation?: No Counseling given: No Marital status: Physical Exam Const: COMMON NORMALS: alert HENMT: COMMON NORMALS: normocephalic HEAD & SCALP: normocephalic Neck/C-Spine: COMMON NORMALS: full ROM Chest: COMMONS NORMALS: normal palpation of entire chest wall Resp: COMMON NORMALS: normal respiratory effort and clear to auscultation bilaterally AUSCULTATION: clear to auscultation bilaterally Cardio: COMMON NORMALS: regular rate and regular rhythm RATE: regular rate RHYTHM: regular rhythm GI: COMMON NORMALS: Soft to palpation PALPATION: Yes Soft to palpation and Yes Tenderness to palpation present (GI) : COMMON NORMALS: Yes no CVA tenderness BLADDER/KIDNEY EXAM: Yes no CVA tenderness Back/Pelvis: COMMON NORMALS: no CVA tenderness Extremity: COMMON NORMALS: no pedal edema Neuro: SENSORIUM/ORIENTATION: Yes alert Skin: COMMON NORMALS: turgor normal GENERAL SKIN EXAM: turgor normal Course Vital Signs: Vital signs: Vital Signs Temperature 98.1 F 06/17/22 23:34 Pulse Rate 49 L 06/18/22 00:30 Respiratory Rate 16 06/18/22 00:30 Blood Pressure 210/83 06/18/22 00:30 Pulse Oximetry 95 06/18/22 00:30 Oxygen Delivery Me thod 06/17/22 23:34 MDM - Abdominal Pain Medical Decision Making 57-year-old female comes in today with abdominal pain radiating to the back. Patient reported a history of renal stones. Patient reports pain started about 7:00 this evening. Patient appears nontoxic. Patient appears in moderate pain. Abdomen soft with some tenderness in the right upper quadrant. No CVA tenderness is noted. Skin is warm and dry. Vital signs are normal except for elevated blood pressure. Differential diagnosis includes but not limited to renal calculi, gallbladder disease, pancreatitis, ACS. CT of the abdomen pelvis noted gallstones and mild gallbladder wall thickening. Ultrasound noted gallstones and a positive Gerardo sign suggestive of possible cholecystitis. Laboratory values were unremarkable except for some mild elevation of white blood cells of 10,000. Patient be placed on some Augmentin for possible cholecystitis, and dicyclomine for gallbladder pain and spasms, and Zofran for nausea. Patient will be referred to surgeon for further evaluation and treatment and return to the ER for worsening symptoms. Patient reported understanding of care plan and need for follow-up or return to the ER. Lab Data 06/17/22 23:45 06/17/22 23:45 Labs/Radiology: Radiology Impressions Abdomen/Pelvis CT 06/17/22 23:43 IMPRESSION: 1. Negative for acute inflammatory process in the abdomen or pelvis 2. Cholelithiasis with gallbladder wall thickening, ultrasound could further evaluate this. 3. Right kidney cysts, negative for follow-up advised. COMMENTS: Consistent with the [employer]'s Incidental Findings Committee white paper (J Am Demetri Radiol 2018): Any incidental renal lesion less than 1 cm or classified as too small to characterize, or any incidental cystic renal lesion characterized as simple-appearing, is likely benign. No follow-up imaging is recommended for these lesions per consensus recommendations based on imaging criteria. Gallbladder Ultrasound 06/18/22 00:17 IMPRESSION: 1. Cholelithiasis with a nonmobile gallbladder neck stone with gallbladder wall thickening to 5 mm and a positive Gerardo's sign concerning for cholecystitis. 2. Two right kidney cysts measuring up to 3 cm. Laboratory Results WBC 10.7 10^3/uL (4.0-10.0) H 06/17/22 23:45 RBC 5.09 10^6/uL (4.1-5.3) 06/17/22 23:45 Hgb 13.8 g/dL (11.5-15.3) 06/17/22 23:45 Hct 42.2 % (37.0-47.0) 06/17/22 23:45 MCV 82.9 fl (81-99) 06/17/22 23:45 MCH 27.1 pg (28.0-34.0) L 06/17/22 23:45 MCHC 32.7 g/dL (30.0-36.0) 06/17/22 23:45 RDW 12.6 % (12.1-15.1) 06/17/22 23:45 Plt Count 305 10^3/cmm (130-400) 06/17/22 23:45 MPV 9.6 fL (7.4-10.4) 06/17/22 23:45 Neut % (Auto) 66.6 % 06/17/22 23:45 Lymph % (Auto) 26.3 % 06/17/22 23:45 Haskell % (Auto) 3.8 % 06/17/22 23:45 Eos % (Auto) 2.5 % 06/17/22 23:45 Baso % (Auto) 0.5 % 06/17/22 23:45 Neut # (Auto) 7.11 10^3/uL (1.8-7.7) 06/17/22 23:45 Lymph # (Auto) 2.8 10^3/uL (0.8-4.8) 06/17/22 23:45 Haskell # (Auto) 0.4 10^3/uL (0.2-0.9) 06/17/22 23:45 Eos # (Auto) 0.3 10^3/uL (0.0-0.8) 06/17/22 23:45 Baso # (Auto) 0.1 10^3/uL (0.0-0.1) 06/17/22 23:45 Nucleated RBC % (auto) 0 % 06/17/22 23:45 Nucleated RBCs # 0.0 /100WBC 06/17/22 23:45 Sodium 139 mmol/L (136-145) 06/17/22 23:45 Potassium 3.2 mmol/L (3.5-5.1) L 06/17/22 23:45 Chloride 101 mmol/L (98-107) 06/17/22 23:45 Carbon Dioxide 24 mmol/L (22-29) 06/17/22 23:45 Anion Gap 17.2 (5-19) 06/17/22 23:45 BUN 10 mg/dL (6-20) 06/17/22 23:45 Creatinine 0.7 mg/dL (0.5-0.9) 06/17/22 23:45 GFR Calculation 85.9 mL/min (90-130) L 06/17/22 23:45 Glucose 111 mg/dL (65-115) 06/17/22 23:45 Calculated Osmolality 288 mOsm/kg (285-295) 06/17/22 23:45 Calcium 9.1 mg/dL (8.5-10.5) 06/17/22 23:45 Total Bilirubin 0.2 mg/dL (0.15-1.2) 06/17/22 23:45 AST 17 U/L (0-32) 06/17/22 23:45 ALT 16 U/L (0-33) 06/17/22 23:45 Alkaline Phosphatase 99 U/L (35-105) 06/17/22 23:45 Troponin T Baseline 6 ng/L (0-10) 06/17/22 23:45 NT-Pro-B Natriuret Pep 205 pg/mL (0-125) H 06/17/22 23:45 Total Protein 6.8 g/dL (6.6-8.7) 06/17/22 23:45 Albumin 4.3 g/dL (3.5-5.2) 06/17/22 23:45 Globulin 2.5 g/dL (1.3-4.6) 06/17/22 23:45 Lipase 34 U/L (13-60) 06/17/22 23:45 Discharge Plan Discharge Patient Disposition: Home Clinical Impression: Cholelithiases Qualifiers: Cholelithiasis location: gallbladder Cholecystitis presence: without cholecystitis Biliary obstruction: without biliary obstruction Qualified Code(s): K80.20 - Calculus of gallbladder without cholecystitis without obstruction Condition: Stable Prescriptions: New dicyclomine 20 mg tablet 20 mg PO QID PRN (Reason: abdominal pain) Qty: 30 0RF amoxicillin-pot clavulanate 875-125 mg tablet 1 tab PO BID Qty: 14 0RF ondansetron 4 mg tablet,disintegrating 4 mg PO Q8H PRN (Reason: nausea and vomiting) Qty: 10 0RF No Action calcium carbonate [Tums] 200 mg calcium (500 mg) tablet,chewable 200 mg PO BID PRN (Reason: Pain) ibuprofen 800 mg tablet 800 mg PO Q8H PRN albuterol sulfate 90 mcg/actuation HFA aerosol inhaler 1 - 2 puff INHALATION Q4H PRN (Reason: Shortness Of Breath) Qty: 8.5 1RF lisinopril 20 mg tablet See Rx Instructions .ROUTE .COMPLEX Qty: 30 2RF Dose Instruction: TAKE 1 TABLET BY MOUTH EVERY DAY NEEDED FOR BLOOD PRESSURE Rx Instructions: TAKE 1 TABLET BY MOUTH EVERY DAY NEEDED FOR BLOOD PRESSURE Discharge Orders: Discharge ED (Routine); Ordered 06/18/22 Ordered By: Rafat Cohen Discharge Diet: Advance as tolerated Discharge Activity: Increase activity as tolerated Patient Instructions: Gallstones (ED), Low Fat Diet (ED) Activity Restrictions/Additional Instructions: Avoid heavy diet with a lot of fats. Clear liquid diet until pain completely resolves. Drink plenty of water and fluids. Follow-up with surgeon for further evaluation and treatment. Case management will contact you with follow-up appointment. Return to ER for worsening symptoms such as uncontrolled pain, inability to hold fluids down, fever greater than 100.4, or new concerns. Coding Level of Care Code ED Community Health Representative for Asa Ortiz
--- NOTE | 2022-06-17 23:43 | CTR_ITS ---
PROCEDURE INFORMATION: Exam: CT Abdomen And Pelvis Without Contrast Exam date and time: 06/17/2022 11:51 PM Age: 57 years old Clinical indication: Abdominal pain; Generalized; Prior surgery; Surgery type: Breast reduction. Csection; Patient HX: C/O diffuse abd and low back pain. History of renal stones. ; Additional info: Abd pain TECHNIQUE: Imaging protocol: Computed tomography of the abdomen and pelvis without contrast. Radiation optimization: All CT scans at this facility use at least one of these dose optimization techniques: automated exposure control; mA and/or kV adjustment per patient size (includes targeted exams where dose is matched to clinical indication); or iterative reconstruction. REPORTING DATA: Count of CT and Cardiac NM exams in prior 12 months: This patient has received 0 known CTs and 0 known cardiac nuclear medicine studies in the 12 months prior to the current study. COMPARISON: CT abdomen pelvis w con* [id number] 09/12/2020 11:23 AM RADIATION DOSE METRICS: Total DLP (mGy-cm): 564.43 FINDINGS: Liver: Normal. No mass. Gallbladder and bile ducts: Cholelithiasis with gallbladder wall thickening, ultrasound could further evaluate this. Pancreas: Normal. No ductal dilation. Spleen: Normal. No splenomegaly. Adrenal glands: Normal. No mass. Kidneys and ureters: Right kidney cysts, negative for follow-up advised. Stomach and bowel: Unremarkable. No obstruction. No mucosal thickening. Appendix: No evidence of appendicitis. Intraperitoneal space: Unremarkable. No free air. No significant fluid collection. Vasculature: Unremarkable. No abdominal aortic aneurysm. Lymph nodes: Unremarkable. No enlarged lymph nodes. Urinary bladder: Unremarkable as visualized. Reproductive: Unremarkable as visualized. Bones/joints: Unremarkable. No acute fracture. Soft tissues: Unremarkable. CT/CT kidney stone [id number] IMPRESSION: 1. Negative for acute inflammatory process in the abdomen or pelvis 2. Cholelithiasis with gallbladder wall thickening, ultrasound could further evaluate this. 3. Right kidney cysts, negative for follow-up advised. COMMENTS: Consistent with the [employer]'s Incidental Findings Committee white paper (J Am Demetri Radiol 2018): Any incidental renal lesion less than 1 cm or classified as too small to characterize, or any incidental cystic renal lesion characterized as simple-appearing, is likely benign. No follow-up imaging is recommended for these lesions per consensus recommendations based on imaging criteria.
--- NOTE | 2022-06-18 00:03 | ECG_ITS ---
[facility] Test Date: 2022-06-18 Pat Name: Radha Camargo Department: Room: Gender: Female Sample Grader: : 1965 Requested By: Rafat Baldwni Order Number: [id number] Gabrielle MD: Shin Bolanos M.D. Measurements Intervals Girard Rate: 48 P: 60 ME: 154 QRS: 47 QRSD: 101 T: 44 QT: 461 QTc: 416 Interpretive Statements SINUS BRADYCARDIA MINIMAL ST DEPRESSION [0.025+ mV ST DEPRESSION] Compared to ECG 05/30/2021 08:52:43 ST (T wave) deviation now present Electronically Signed On 06-18-2022 15:11:29 BILL SORTER by Shin Bolanos M.D. [id number]
[2022-06-18] MEDS: fentaNYL 50 mcg/mL INJ 2mL IVP (00:06)
[2022-06-18] MEDS: ondansetron 2 mg/ML SDV 2 mL 4 MG IVP (00:06)
[2022-06-18 00:17] VITALS: RESP 19
--- NOTE | 2022-06-18 00:17 | USR_ITS ---
PROCEDURE INFORMATION: Exam: US Abdomen, Limited; Right Upper Quadrant Exam date and time: 06/18/2022 12:30 AM Age: 57 years old Clinical indication: Abdominal pain; Patient HX: Ruq pain radiating to the back today. ; Additional info: Cholelithiasis TECHNIQUE: Imaging protocol: Real time ultrasound of the abdomen with image documentation. Limited exam focused on the right upper quadrant. COMPARISON: US abdomen limited [id number] 09/12/2020 7:57 AM FINDINGS: Liver: Normal. No masses. Gallbladder: Cholelithiasis with a nonmobile gallbladder neck stone with gallbladder wall thickening to 5 mm and a positive Gerardo's sign concerning for cholecystitis. Biliary ducts: Normal. No stones. No dilation. Pancreas: Visualized pancreas is unremarkable. Right kidney: Two right kidney cysts measuring up to 3 cm. US/US gall bladder [id number] IMPRESSION: 1. Cholelithiasis with a nonmobile gallbladder neck stone with gallbladder wall thickening to 5 mm and a positive Gerardo's sign concerning for cholecystitis. 2. Two right kidney cysts measuring up to 3 cm.
[2022-06-18 00:18] LABS: Basophils # 0.1 10^3/uL (0.0-0.1); Basophils % 0.5 %; Eosinophils # 0.3 10^3/uL (0.0-0.8); Eosinophils % 2.5 %; Hematocrit 42.2 % (37.0-47.0); Hemoglobin 13.8 g/dL (11.5-15.3); Lymphocytes # 2.8 10^3/uL (0.8-4.8); Lymphocytes % 26.3 %; Mean Corpuscular HGB Conc 32.7 g/dL (30.0-36.0); Mean Corpuscular Hemoglobin 27.1 pg (28.0-34.0); Mean Corpuscular Volume 82.9 fl (81-99); Mean Platelet Volume 9.6 fL (7.4-10.4); Monocytes # 0.4 10^3/uL (0.2-0.9); Monocytes % 3.8 %; Neutrophils # 7.11 10^3/uL (1.8-7.7); Neutrophils % 66.6 %; Nucleated Red Blood Cells % 0 %; Platelet Count 305 10^3/cmm (130-400); Red Blood Count 5.09 10^6/uL (4.1-5.3); Red Cell Distribution Width 12.6 % (12.1-15.1); White Blood Count 10.7 10^3/uL (4.0-10.0)
[2022-06-18 00:30] VITALS: BP 210/83; PULSE 49; RESP 16; O2SAT 95
[2022-06-18 00:47] LABS: Troponin(5th) Baseline 6 ng/L (0-10)
[2022-06-18 00:52] LABS: Alanine Aminotransferase 16 U/L (0-33); Albumin Level 4.3 g/dL (3.5-5.2); Alkaline Phosphatase 99 U/L (35-105); Anion Gap 17.2 (5-19); Aspartate Amino Transferase 17 U/L (0-32); Blood Urea Nitrogen 10 mg/dL (6-20); Calcium 9.1 mg/dL (8.5-10.5); Carbon Dioxide 24 mmol/L (22-29); Chloride 101 mmol/L (98-107); Globulin 2.5 g/dL (1.3-4.6); Glomerular Filtration Rate 85.9 mL/min (90-130); Glucose 111 mg/dL (65-115); Lipase 34 U/L (13-60); NT Pro B Type Natriuretic Pept 205 pg/mL (0-125); Osmolality Calculated 288 mOsm/kg (285-295); Potassium 3.2 mmol/L (3.5-5.1); Sodium 139 mmol/L (136-145); Total Bilirubin 0.2 mg/dL (0.15-1.2); Total Protein 6.8 g/dL (6.6-8.7)
[2022-06-18] MEDS: dicyclomine 20 mg Tablet PO (01:35)
[2022-06-18] MEDS: amoxicillin-clav 875-125 mg Tablet 1 TAB PO (01:35)
[2022-06-18 01:36] VITALS: BP 159/59; PULSE 58; RESP 14; O2SAT 98
--- NOTE | 2022-06-18 08:40 | DCPLANNER ---
Addendum entered by Lorrie Espino 06/20/22 08:32: Patient had a followup appointment scheduled with general surgery - patient did attend appointment. Original Note: department sales manager had message to schedule a follow up appointment for patient with general surgery. department sales manager sent patients information to the front office staff at general surgery. Patients information will be printed and reviewed. Clinic will call patient with appointment information.
--- NOTE | 2022-06-24 13:05 | DCPLANNER ---
06.21.22 - patient called due to no primary care physician - patient stated that she has an appointment scheduled with Dr. Li at [facility].
== END 2022-06-18 01:41 | disposition home or self-care (01) ==
PROVIDERS: Emergency Provider Nurse Practitioner Family
DX: K80.20 Calculus of gallbladder without cholecystitis without obstruction (principal); F17.210 Nicotine dependence, cigarettes, uncomplicated; I10 Essential (primary) hypertension
CPT/HCPCS: 74176; 76705; 80053; 83690; 83880; 84484; 85025; 93005; 96374; 96375; 99285; J2405; J3010

== ENCOUNTER 2022-07-29 02:46 | Emergency (ER) | payer SELFPAY ==
[2022-07-29 02:59] VITALS: PULSE 63; RESP 24; TEMP 36.8; O2SAT 99; BMI 27.1
--- NOTE | 2022-07-29 03:05 | CTR_ITS ---
PROCEDURE INFORMATION: Exam: CT Abdomen And Pelvis Without Contrast Exam date and time: 07/29/2022 3:24 AM Age: 57 years old Clinical indication: Abdominal pain; Prior surgery; Surgery type: Breast reduction. Csection; Patient HX: C/O bilateral flank pain with dysuria. Known cholelithiasis. TECHNIQUE: Imaging protocol: Computed tomography of the abdomen and pelvis without contrast. Radiation optimization: All CT scans at this facility use at least one of these dose optimization techniques: automated exposure control; mA and/or kV adjustment per patient size (includes targeted exams where dose is matched to clinical indication); or iterative reconstruction. REPORTING DATA: Count of CT and Cardiac NM exams in prior 12 months: This patient has received [address] and 0 known cardiac nuclear medicine studies in the 12 months prior to the current study. COMPARISON: CT kidney stone [id number] 06/17/2022 11:51 PM RADIATION DOSE METRICS: Total DLP (mGy-cm): 516.94 FINDINGS: Lungs: The lung bases are clear. No effusion Liver: There is fatty infiltration of the liver. Gallbladder and bile ducts: There is cholelithiasis without wall thickening or pericholecystic fluid. No bile duct stone. Pancreas: Normal. No ductal dilation. Spleen: Normal. No splenomegaly. Adrenal glands: Normal. No mass. Kidneys and ureters: There are multiple right renal cysts, largest measures 4.3 cm. No nephroureterolithiasis or urinary bladder stone. Stomach and bowel: Unremarkable. No obstruction. No mucosal thickening. Appendix: No evidence of appendicitis. Intraperitoneal space: Unremarkable. No free air. No significant fluid collection. Vasculature: Unremarkable. No abdominal aortic aneurysm. Lymph nodes: Unremarkable. No enlarged lymph nodes. Urinary bladder: There is urinary bladder wall thickening with pericystic fat stranding. Reproductive: Unremarkable as visualized. Bones/joints: Unremarkable. No acute fracture. Soft tissues: Unremarkable. CT/CT kidney stone [id number] IMPRESSION: 1. Acute cystitis. 2. No nephroureterolithiasis or urinary bladder stone. 3. Fatty infiltration of the liver. 4. Cholelithiasis without cholecystitis . COMMENTS: Consistent with the [employer]'s Incidental Findings Committee white paper (J Am Demetri Radiol 2018): Any incidental renal lesion less than 1 cm or classified as too small to characterize, or any incidental cystic renal lesion characterized as simple-appearing, is likely benign. No follow-up imaging is recommended for these lesions per consensus recommendations based on imaging criteria.
--- NOTE | 2022-07-29 03:09 | ED_ITS ---
HPI - Female Genitourinary General: Chief complaint: Urogenital-Female Stated complaint: Possible Kidney Stones\Lot of Pain Time Seen by Provider: 07/29/22 02:59 Source: patient Mode of arrival: ambulatory Limitations: no limitations History of Present Illness: 57-year-old female who states that she been having back and flank pain states been going on all day. States she is also had some abdominal and chest pain she also feels like it is radiating from her back she had history of kidney stones states this feels similar. She rates her pain an 8 out of 10 denies any vomiting denies any diarrhea she denies any worsening proving factors she denies any fevers or dysuria. Associated symptoms: Reports abdominal pain; Deny headache(s) Review of Systems Const: Denies: fever(s) or chills Eyes: Reports: eye discomfort ENMT: Denies: throat pain Card: Denies: chest pain Resp: Denies: dyspnea GI: Reports: abdominal pain : Reports: flank pain Musc: Reports: back pain Skin/Breast: Denies: rash Neuro: Denies: headache(s) Psych: Denies: depression Jaime/Lymph: Denies: easy bruising All/Imm: Denies: urticaria PFSH ED PFSH: Medical History Benign cyst of right kidney Deficient knowledge of leg surgery home care at age 1 HTN (hypertension) Psychiatric care Surgical History H/O bilateral breast reduction surgery H/O oral surgery teeth extraction H/O: x 2 Family History Father , at age 78 Heart disease Son Anesthesia complication Hypertension Denies family history of Colon cancer Ovarian cancer Diabetes Clotting disorder Hyperlipidemia Breast cancer Bleeding disorder Uterine cancer Thyroid disease Stroke Social History Smoking and tobacco status: current every day smoker cigarettes Years cigarettes smoked: 44 Smoking risk assessment/counseling performed?: No Alcohol intake: never Desire information about alcohol rehabilitation?: No Counseling given: No Desire information about substance/drug rehabilitation?: No Counseling given: No Marital status: Physical Exam Const: COMMON NORMALS: no acute distress, patient oriented x3 and healthy appearing HENMT: COMMON NORMALS: normocephalic and atraumatic HEAD & SCALP: normocephalic and atraumatic Eye: COMMON NORMALS: conjunctivae normal CONJUNCTIVA: Yes conjunctivae normal Neck/C-Spine: COMMON NORMALS: full ROM and supple Chest: COMMONS NORMALS: normal inspection of the chest and normal palpation of entire chest wall Resp: COMMON NORMALS: normal respiratory effort, No retractions, No use of accessory muscles and clear to auscultation bilaterally AUSCULTATION: clear to auscultation bilaterally Cardio: COMMON NORMALS: regular rate, regular rhythm and No murmurs present (Cardio) RATE: regular rate RHYTHM: regular rhythm GI: COMMON NORMALS: Normal to inspection, nondistended, normoactive bowel sounds present, Soft to palpation, non-tender and no masses PALPATION: Yes Soft to palpation Extremity: COMMON NORMALS: normal to inspection and full ROM Neuro: COMMON NORMALS: patient oriented x3, moves all extremities and no focal motor deficits Psych: COMMON NORMALS: mental status grossly normal, Normal thought process present and cooperative THOUGHT PROCESS: Normal thought process present Skin: COMMON NORMALS: no rashes or lesions noted and no wounds GENERAL SKIN EXAM: no rashes or lesions noted Course Vital Signs: Vital signs: Vital Signs Temperature 98.3 F 07/29/22 02:59 Pulse Rate 68 07/29/22 05:04 Respiratory Rate 18 07/29/22 05:04 Blood Pressure 168/82 07/29/22 05:04 Pulse Oximetry 98 07/29/22 05:04 Oxygen Delivery Me thod Room Air 07/29/22 03:58 MDM - Female Medical Decision Making Patient presents here with abdominal back pain likely from her cholelithiasis blood work CAT scan are otherwise normal she is well-appearing here feels much i mproved she is stable for discharge we will get her follow-up with surgery she is return if worsening she understands agrees to plan. Lab Data 07/29/22 03:16 07/29/22 03:16 Radiology Impressions Abdomen/Pelvis CT 07/29/22 03:05 IMPRESSION: 1. Acute cystitis. 2. No nephroureterolithiasis or urinary bladder stone. 3. Fatty infiltration of the liver. 4. Cholelithiasis without cholecystitis . COMMENTS: Consistent with the [employer]'s Incidental Findings Committee white paper (J Am Demetri Radiol 2018): Any incidental renal lesion less than 1 cm or classified as too small to characterize, or any incidental cystic renal lesion characterized as simple-appearing, is likely benign. No follow-up imaging is recommended for these lesions per consensus recommendations based on imaging criteria. Laboratory Results WBC 9.6 10^3/uL (4.0-10.0) 07/29/22 03:16 RBC 5.37 10^6/uL (4.1-5.3) H 07/29/22 03:16 Hgb 14.5 g/dL (11.5-15.3) 07/29/22 03:16 Hct 44.5 % (37.0-47.0) 07/29/22 03:16 MCV 82.9 fl (81-99) 07/29/22 03:16 MCH 27.0 pg (28.0-34.0) L 07/29/22 03:16 MCHC 32.6 g/dL (30.0-36.0) 07/29/22 03:16 RDW 12.8 % (12.1-15.1) 07/29/22 03:16 Plt Count 293 10^3/cmm (130-400) 07/29/22 03:16 MPV 9.5 fL (7.4-10.4) 07/29/22 03:16 Neut % (Auto) 67.6 % 07/29/22 03:16 Lymph % (Auto) 25.3 % 07/29/22 03:16 [place] % (Auto) 4.5 % 07/29/22 03:16 Eos % (Auto) 1.8 % 07/29/22 03:16 Baso % (Auto) 0.6 % 07/29/22 03:16 Neut # (Auto) 6.50 10^3/uL (1.8-7.7) 07/29/22 03:16 Lymph # (Auto) 2.4 10^3/uL (0.8-4.8) 07/29/22 03:16 [place] # (Auto) 0.4 10^3/uL (0.2-0.9) 07/29/22 03:16 Eos # (Auto) 0.2 10^3/uL (0.0-0.8) 07/29/22 03:16 Baso # (Auto) 0.1 10^3/uL (0.0-0.1) 07/29/22 03:16 Nucleated RBC % (auto) 0 % 07/29/22 03:16 Nucleated RBCs # 0.0 /100WBC 07/29/22 03:16 Sodium 139 mmol/L (136-145) 07/29/22 03:16 Potassium 3.4 mmol/L (3.5-5.1) L 07/29/22 03:16 Chloride 101 mmol/L (98-107) 07/29/22 03:16 Carbon Dioxide 24 mmol/L (22-29) 07/29/22 03:16 Anion Gap 17.4 (5-19) 07/29/22 03:16 BUN 7 mg/dL (6-20) 07/29/22 03:16 Creatinine 0.8 mg/dL (0.5-0.9) 07/29/22 03:16 GFR Calculation 73.7 mL/min (90-130) L 07/29/22 03:16 Glucose 114 mg/dL (65-115) 07/29/22 03:16 Calculated Osmolality 287 mOsm/kg (285-295) 07/29/22 03:16 Calcium 9.2 mg/dL (8.5-10.5) 07/29/22 03:16 Total Bilirubin 0.2 mg/dL (0.15-1.2) 07/29/22 03:16 AST 14 U/L (0-32) 07/29/22 03:16 ALT 13 U/L (0-33) 07/29/22 03:16 Alkaline Phosphatase 90 U/L (35-105) 07/29/22 03:16 Troponin T Baseline 6 ng/L (0-10) 07/29/22 03:16 Total Protein 7.3 g/dL (6.6-8.7) 07/29/22 03:16 Albumin 4.2 g/dL (3.5-5.2) 07/29/22 03:16 Globulin 3.1 g/dL (1.3-4.6) 07/29/22 03:16 Lipase 33 U/L (13-60) 07/29/22 03:16 Urine Color Yellow (Yellow) 07/29/22 04:07 Urine Appearance Clear (CLEAR) 07/29/22 04:07 Urine pH 6.5 (5-7) 07/29/22 04:07 Ur Specific [place] 1.010 (1.005-1.030) 07/29/22 04:07 Urine Protein 1+ (Negative) H 07/29/22 04:07 Urine Glucose (UA) Norm (Normal) 07/29/22 04:07 Urine Ketones Negative (Negative) 07/29/22 04:07 Urine Blood Neg (Negative) 07/29/22 04:07 Urine Nitrate Negative (Negative) 07/29/22 04:07 Urine Bilirubin Neg (Negative) 07/29/22 04:07 Urine Urobilinogen Norm mg/dL (Negative) 07/29/22 04:07 Ur Leukocyte Esterase Negative (Negative) 07/29/22 04:07 Urine RBC 0-4 /hpf (0-2) H 07/29/22 04:07 Urine WBC 5-10 /hpf (0-5) H 07/29/22 04:07 Ur Squamous Epith Cells 0-4 /hpf (0-5) H 07/29/22 04:07 Amorphous Sediment Not Reportable 07/29/22 04:07 Urine Bacteria Trace /hpf (NONE) 07/29/22 04:07 Discharge Plan Discharge Patient Disposition: Home Clinical Impression: Cholelithiasis Condition: Stable Prescriptions: New ondansetron 4 mg tablet,disintegrating 4 mg PO Q6H PRN (Reason: nausea and vomiting) Qty: 14 0RF methocarbamol 750 mg tablet 750 mg PO Q6H PRN (Reason: spasms) Qty: 20 0RF No Action calcium carbonate [Tums] 200 mg calcium (500 mg) tablet,chewable 200 mg PO BID PRN (Reason: Pain) ibuprofen 800 mg tablet 800 mg PO Q8H PRN lisinopril 20 mg tablet See Rx Instructions .ROUTE .COMPLEX Qty: 30 2RF Dose Instruction: TAKE 1 TABLET BY MOUTH EVERY DAY NEEDED FOR BLOOD PRESSURE Rx Instructions: TAKE 1 TABLET BY MOUTH EVERY DAY NEEDED FOR BLOOD PRESSURE albuterol sulfate 90 mcg/actuation HFA aerosol inhaler 1 - 2 puff INHALATION Q4H PRN (Reason: Shortness Of Breath) Qty: 8.5 1RF dicyclomine 20 mg tablet 20 mg PO QID PRN (Reason: abdominal pain) Qty: 30 0RF amoxicillin-pot clavulanate 875-125 mg tablet 1 tab PO BID Qty: 14 0RF ondansetron 4 mg tablet,disintegrating 4 mg PO Q8H PRN (Reason: nausea and vomiting) Qty: 10 0RF Discharge Orders: Discharge ED (Routine); Ordered 07/29/22 Ordered By: Rachel Yap Referrals: Jeff Mckeon DO [Physician] - 1-3 days Bebe Li DO [Primary Care Provider] - Discharge Diet: Advance as tolerated Discharge Activity: Resume usual activity Patient Instructions: Gallstones (ED) Coding Level of Care Code ED Biotechnician for Asa Ortiz
--- NOTE | 2022-07-29 03:09 | ECG_ITS ---
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 Measurements Intervals [place] Rate: 59 P: 73 [place]: 153 QRS: 59 QRSD: 101 T: 29 QT: 443 QTc: 442 Interpretive Statements SINUS BRADYCARDIA WITH SINUS ARRHYTHMIA MINIMAL ST DEPRESSION [0.025+ mV ST DEPRESSION] Compared to ECG 06/18/2022 00:03:28 No significant changes Electronically Signed On 07-29-2022 14:49:20 CDT by aDvid Ramos M.D. [id number]
[2022-07-29] MEDS: ondansetron 2 mg/ML SDV 2 mL 4 MG IVP (03:23)
[2022-07-29] MEDS: sodium chloride 0.9% 1,000 ML 999 ML IV (03:23)
[2022-07-29] MEDS: HYDROmorphone 1 mg/mL INJ 1 mL 0.5 MG IVP (03:23)
[2022-07-29] MEDS: hyDRALAzine 20 mg/mL INJ 1 mL 10 MG IVP (03:23)
[2022-07-29 03:24] LABS: Basophils # 0.1 10^3/uL (0.0-0.1); Basophils % 0.6 %; Eosinophils # 0.2 10^3/uL (0.0-0.8); Eosinophils % 1.8 %; Hematocrit 44.5 % (37.0-47.0); Hemoglobin 14.5 g/dL (11.5-15.3); Lymphocytes # 2.4 10^3/uL (0.8-4.8); Lymphocytes % 25.3 %; Mean Corpuscular HGB Conc 32.6 g/dL (30.0-36.0); Mean Corpuscular Volume 82.9 fl (81-99); Mean Platelet Volume 9.5 fL (7.4-10.4); Monocytes # 0.4 10^3/uL (0.2-0.9); Monocytes % 4.5 %; Neutrophils % 67.6 %; Nucleated Red Blood Cells % 0 %; Platelet Count 293 10^3/cmm (130-400); Red Blood Count 5.37 10^6/uL (4.1-5.3); Red Cell Distribution Width 12.8 % (12.1-15.1); White Blood Count 9.6 10^3/uL (4.0-10.0)
[2022-07-29 03:43] LABS: Troponin(5th) Baseline 6 ng/L (0-10)
[2022-07-29 03:44] LABS: Alanine Aminotransferase 13 U/L (0-33); Albumin Level 4.2 g/dL (3.5-5.2); Alkaline Phosphatase 90 U/L (35-105); Anion Gap 17.4 (5-19); Aspartate Amino Transferase 14 U/L (0-32); Blood Urea Nitrogen 7 mg/dL (6-20); Calcium 9.2 mg/dL (8.5-10.5); Carbon Dioxide 24 mmol/L (22-29); Chloride 101 mmol/L (98-107); Globulin 3.1 g/dL (1.3-4.6); Glomerular Filtration Rate 73.7 mL/min (90-130); Glucose 114 mg/dL (65-115); Lipase 33 U/L (13-60); Osmolality Calculated 287 mOsm/kg (285-295); Potassium 3.4 mmol/L (3.5-5.1); Sodium 139 mmol/L (136-145); Total Bilirubin 0.2 mg/dL (0.15-1.2); Total Protein 7.3 g/dL (6.6-8.7)
[2022-07-29 03:58] VITALS: BP 178/71; PULSE 75; RESP 18; O2SAT 97
[2022-07-29 04:33] VITALS: BP 157/58; PULSE 65; RESP 17; O2SAT 97
[2022-07-29 04:42] LABS: Add Urine Culture? No; Add Urine Microscopic? YES; Bacteria Urine TRACE /hpf; Bilirubin Urine Neg (Negative); Blood Urine Neg (Negative); Glucose Urine UA Norm (Normal); Ketones Urine Negative (Negative); Leukocyte Esterase Urine Negative (Negative); Nitrate Urine Negative (Negative); Protein Urine 1+ (Negative); RBC Urine 0-4 /hpf (0-2); Squamous Epithelial Cell Urine 0-4 /hpf (0-5); Urine Appearance Clear (CLEAR); Urine Color Yellow (Yellow); Urobilinogen Urine Norm (Negative); pH Urine 6.5 (5-7)
[2022-07-29 05:04] VITALS: BP 168/82; PULSE 68; RESP 18; O2SAT 98
--- NOTE | 2022-07-29 09:57 | DCPLANNER ---
Addendum entered by Lorrie Espino 07/30/22 09:46: complex human resources manager received the following message from the general surgery clinic regarding follow up appointment: Due to patient having a balance over $3k, we cannot see her until she has something worked out with FA.. Mailing letter and FA packet to patient. Original Note: complex human resources manager had message to schedule a follow up appointment for patient with general surgery. complex human resources manager sent patients information to the front office staff at general surgery. Patients information will be printed and reviewed. Clinic will call patient with appointment information.
== END 2022-07-29 05:18 | disposition home or self-care (01) ==
PROVIDERS: Emergency Provider Emergency Medicine; PCP Family Medicine
DX: K80.20 Calculus of gallbladder without cholecystitis without obstruction (principal); N30.00 Acute cystitis without hematuria; F17.210 Nicotine dependence, cigarettes, uncomplicated; I10 Essential (primary) hypertension
CPT/HCPCS: 74176; 80053; 81001; 83690; 84484; 85025; 93005; 96361; 96374; 96375; 99285; J0360; J1170; J2405; J7030

== ENCOUNTER 2025-04-04 04:30 | Emergency (ER) | payer SELFPAY ==
[2025-04-04] VITALS (8 sets, daily range): BP systolic 121–242; BP diastolic 67–118; PULSE 58–89; RESP 16; TEMP 36.4; O2SAT 94–100; BMI 25.0
--- NOTE | 2025-04-04 04:36 | ECG_ITS ---
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
--- NOTE | 2025-04-04 04:47 | CT_ITS ---
WS: [id number] CT HEAD NONCONTRAST HISTORY: dizzy TECHNIQUE: Contiguous axial imaging performed through the brain. Bone and soft tissue windows. Sagittal and coronal reformats reviewed. All CT scans at [facility] use at least one of these dose optimization techniques: automated exposure control; mA and/or kV adjustment per patient size (includes targeted exams where dose is matched to clinical indication); or iterative reconstruction. DLP: 1091.74 mGy.cm COMPARISON: 05/18/2020 No acute intracranial hemorrhage, midline shift or mass effect. Mild symmetric atrophy. Mild small vessel changes. No large territory infarct. Ventricles: Normal size with no hydrocephalus. No inferior displacement of the cerebellar tonsils. Paranasal sinuses: As visualized are clear. Mastoid air cells: Well pneumatized. Calvarium and scalp: Skull is intact with no soft tissue edema or swelling. CT/CT head wo con* [id number] IMPRESSION: 1. Stable noncontrast CT head since 05/18/2020. 2. No acute intracranial hemorrhage or edema. 3. Mild stable cerebral atrophy and small vessel changes.
[2025-04-04 04:54] LABS: Hematocrit 44.8 % (36-47); Hemoglobin 14.80 g/dL (11.27-16.99); Mean Corpuscular HGB Conc 33.0 g/dL (30-55); Mean Corpuscular Hemoglobin 27.1 pg (27-33); Mean Corpuscular Volume 82.1 fl (85-98); Nucleated Red Blood Cells % 0 %; Platelet Count 278 10^3/cmm (157-399); Red Blood Count 5.46 10^6/uL (3.85-5.65); White Blood Count 8.47 10^3/uL (3.29-11.43)
[2025-04-04 05:01] LABS: INR 0.95 (0.8-1.2); Prothrombin Time 13.30 SECONDS (12.1-14.9)
[2025-04-04 05:02] LABS: Partial Thromboplastin Time 25.6 SECONDS (23.9-36.7)
[2025-04-04] MEDS: LORazepam 2 mg/mL INJ 1 mL 0.5 MG IVP (05:11)
[2025-04-04 05:16] LABS: Alanine Aminotransferase 10 U/L (0-33); Albumin Level 4.6 g/dL (3.5-5.2); Alkaline Phosphatase 95 U/L (35-105); Anion Gap 18.2 (5-19); Aspartate Amino Transferase 14 U/L (0-32); Blood Urea Nitrogen 14 mg/dL (8-23); Calcium 9.5 mg/dL (8.5-10.5); Carbon Dioxide 25 mmol/L (22-29); Chloride 99 mmol/L (98-107); Globulin 3.0 g/dL (1.3-4.6); Glucose 129 mg/dL (65-115); Magnesium 2.2 mg/dL (1.7-2.3); Osmolality Calculated 290 mOsm/kg (285-295); Potassium 3.2 mmol/L (3.5-5.1); Sodium 139 mmol/L (136-145); Total Protein 7.6 g/dL (6.6-8.7)
--- NOTE | 2025-04-04 05:19 | ED_ITS ---
HPI - Nausea/Vomiting/Diarrhea 2 General: Chief complaint: Nausea/Vomiting/Diarrhea Stated complaint: nausea and vomiting Time Seen by Provider: 04/04/25 04:37 History of Present Illness: Patient is a 60-year-old female who presents with acute onset of vertigo and near-syncope. She reports that she was lying down to go to sleep when she experienced severe spinning sensation, which was accompanied by nausea. The patient thought these symptoms as potentially related to hypotension based on previous similar episodes. She attempted to self-treat by consuming approximately half a teaspoon of salt with water, but her symptoms worsened. She began to feel like she was going to lose consciousness and called emergency services. While speaking with the dispatcher, she felt herself starting to lose consciousness but was instructed to keep talking to maintain alertness. The patient reports that this current episode is the worst she has ever experienced, with significant tremors. She notes a pattern of positional vertigo, particularly when lying on her right side. The patient states she has been managing her blood pressure with marijuana due to inability to afford prescription medications after losing her job. She also reports marijuana exposure shortly before this episode. She reports previous treatment with lisinopril 40mg but expresses concerns about medication allergies. Related Data Home Medications ?Medication ?Instructions ?Recorded ?Confirmed ibuprofen 800 mg tablet 800 mg PO Q8H PRN 09/19/21 0 08/26/23 Previous Rx's ?Medication ?Instructions ?Recorded albuterol sulfate 90 mcg/actuation 1 - 2 puff inhalati on Q4H PRN 08/29/22 aerosol inhaler Shortness Of Breath #8.5 gra ms lisinopril 40 mg tablet 40 mg .Route DAILY #30 tabs 08/26/23 amlodipine 10 mg tablet 10 mg PO DAILY #30 tabs 03/14 07/05 meclizine 25 mg tablet 25 mg PO TID #30 tabs Allergies Allergy/AdvReac Type Severity Reaction Status Date / Time lactose Allergy Unknown diarrhea Verified 08/26/23 08:34 acetaminophen (From Percocet) Allergy ADR-Dizzine Verified 08/26/23 08:34 ss clobetasol Allergy ALGY-Hives Verified 08/26/23 08:34 codeine Allergy ALGY-Difficulty Verified 08/26/23 08:34 Breathing morphine Allergy ALGY-Difficulty Verified 08/26/23 08:34 Breathing oxycodone (From Percocet) Allergy ADR-Dizzine Verified 08/26/23 08:34 ss prednisone Allergy ALGY-Redness Verified 08/26/23 08:34 of Skin PFSH ED 2 PFSH: Medical History Deficient knowledge of leg surgery home care at age 1 Benign cyst of right kidney HTN (hypertension) Surgical History H/O: x 2 H/O bilateral breast reduction surgery H/O oral surgery teeth extraction Family History Father , at age 78 Heart disease Son Anesthesia complication Hypertension Denies family history of Colon cancer Ovarian cancer Diabetes Clotting disorder Hyperlipidemia Breast cancer Bleeding disorder Uterine cancer Thyroid disease Stroke Social History Smoking and tobacco/nicotine status: current every day tobacco/nicotine user cigarettes Years cigarettes smoked: 44 Alcohol intake: never Substance/Drug Use: never Marital status: Physical Exam 2 Const: COMMON NORMALS: no acute distress and alert GENERAL APPEARANCE: c ooperative; not ill appearing and not frail appearing HENMT: COMMON NORMALS: normocephalic, atraumatic and Normal external nose present HEAD & SCALP: normocephalic and atraumatic FACE & SINUS: normal facial exam and face symmetric NOSE: Normal external nose present Eye: COMMON NORMALS: Equal, round and reactive pupils present and EOMs intact bilaterally PUPIL: Yes Equal, round and reactive pupils present Neck/C-Spine: GENERAL: Yes trachea midline Chest: CHEST: Yes Symmetrical chest wall rise Resp: COMMON NORMALS: normal respiratory effort, No retractions, No use of accessory muscles and clear to auscultation bilaterally AUSCULTATION: clear to auscultation bilaterally Cardio: COMMON NORMALS: regular rate and regular rhythm RATE: regular rate RHYTHM: regular rhythm GI: COMMON NORMALS: Normal to inspection, nondistended, normoactive bowel sounds present Extremity: COMMON NORMALS: no pedal edema Neuro: CATA COMA SCALE: document GCS findings [place] coma scale eye opening: Spontaneous [place] coma scale verbal response: Orientated [place] coma scale motor response: Obey commands C[place] coma scale total score: 15 S ENSORIUM/ORIENTATION: Yes alert COORDINATION/BALANCE: worfxo-ns-[id number] test normal and sgeq-by-vfvh test normal SPEECH: speech normal SENSORY EXAM: Y es extremities (intact) MOTOR EXAM: Pronator motor function not present C OORDINATION: hxsonl-eh-xinm test normal and lhib-wc-[id number] test normal Psych: COMMON NORMALS: speech normal SPEECH: Yes normal speech Skin: COMMON NORMALS: no rashes or lesions noted GENERAL SKIN EXAM: no rashes or lesions noted Course 2 Vital Signs: Vital signs: Vital Signs Temperature 97.5 F L 04/04/25 04:32 Pulse Rate 62 04/04/25 07:45 Respiratory Rate 16 04/04/25 04:32 Blood Pressure 121/69 04/04/25 07:45 Pulse Oximetry 98 04/04/25 07:45 Oxygen Delivery Me thod Room Air 04/04/25 07:35 MDM - Nausea/Vomiting/Diarrhea Medical Decision Making 60-year-old female with acute onset of vertigo after smoking marijuana at home. Her blood pressure was quite high on arrival, 242/118. is improving now following medication administration. Head CT is negative. Hemoglobin is 14.8. Potassium is 3.2. It is repleted orally liver enzymes are normal. Her NIH score is 0. She was able to ambulate in the ER. Dizziness is improved. Head CT appears negative. Awaiting official radiology read. She will be discharged. Short course of meclizine for vertigo Lab Data 04/04/25 04:30 04/04/25 04:[address] 04/04/25 04:47 IMPRESSION: 1. Stable noncontrast CT head since 05/18/2020. 2. No acute intracranial hemorrhage or edema. 3. Mild stable cerebral atrophy and small vessel changes. Laboratory Results WBC 8.47 10^3/uL (3.29-11.43) 04/04/25 04:30 RBC 5.46 10^6/uL (3.85-5.65) 04/04/25 04:30 Hgb 14.80 g/dL (11.27-16.99) 04/04/25 04:30 Hct 44.8 % (36-47) 04/04/25 04:30 MCV 82.1 fl (85-98) L 04/04/25 04:30 MCH 27.1 pg (27-33) 04/04/25 04:30 MCHC 33.0 g/dL (30-55) 04/04/25 04:30 RDW 13.1 % (12.1-15.1) 04/04/25 04:30 Plt Count 278 10^3/cmm (157-399) 04/04/25 04:30 MPV 8.8 fL (7.4-10.4) 04/04/25 04:30 Neut % (Auto) 48.7 % 04/04/25 04:30 Lymph % (Auto) 43.0 % 04/04/25 04:30 [place] % (Auto) 4.0 % 04/04/25 04:30 Eos % (Auto) 3.2 % 04/04/25 04:30 Baso % (Auto) 0.7 % 04/04/25 04:30 Neut # (Auto) 4.13 10^3/uL (1.8-7.7) 04/04/25 04:30 Lymph # (Auto) 3.6 10^3/uL (0.8-4.8) 04/04/25 04:30 [place] # (Auto) 0.3 10^3/uL (0.2-0.9) 04/04/25 04:30 Eos # (Auto) 0.3 10^3/uL (0.0-0.8) 04/04/25 04:30 Baso # (Auto) 0.1 10^3/uL (0.0-0.1) 04/04/25 04:30 Nucleated RBC % (auto) 0 % 04/04/25 04:30 Nucleated RBCs # 0.0 /100WBC 04/04/25 04:30 PT 13.30 SECONDS (12.1-14.9) 04/04/25 04:30 INR 0.95 (0.8-1.2) 04/04/25 04:30 APTT 25.6 SECONDS (23.9-36.7) 04/04/25 04:30 Sodium 139 mmol/L (136-145) 04/04/25 04:30 Potassium 3.2 mmol/L (3.5-5.1) L 04/04/25 04:30 Chloride 99 mmol/L (98-107) 04/04/25 04:30 Carbon Dioxide 25 mmol/L (22-29) 04/04/25 04:30 Anion Gap 18.2 (5-19) 04/04/25 04:30 BUN 14 mg/dL (8-23) 04/04/25 04:30 Creatinine 0.8 mg/dL (0.5-0.9) 04/04/25 04:30 GFR Calculation 72.9 mL/min (90-130) L 04/04/25 04:30 Glucose 129 mg/dL (65-115) H 04/04/25 04:30 Calculated Osmolality 290 mOsm/kg (285-295) 04/04/25 04:30 Calcium 9.5 mg/dL (8.5-10.5) 04/04/25 04:30 Magnesium 2.2 mg/dL (1.7-2.3) 04/04/25 04:30 Total Bilirubin 0.3 mg/dL (0.15-1.2) 04/04/25 04:30 AST 14 U/L (0-32) 04/04/25 04:30 ALT 10 U/L (0-33) 04/04/25 04:30 Alkaline Phosphatase 95 U/L (35-105) 04/04/25 04:30 Total Protein 7.6 g/dL (6.6-8.7) 04/04/25 04:30 Albumin 4.6 g/dL (3.5-5.2) 04/04/25 04:30 Globulin 3.0 g/dL (1.3-4.6) 04/04/25 04:30 Urine Color Yellow (Yellow) 04/04/25 06:03 Urine Appearance Clear (CLEAR) 04/04/25 06:03 Urine pH 5.5 (5-7) 04/04/25 06:03 Ur Specific [place] 1.016 (1.005-1.030) 04/04/25 06:03 Urine Protein 1+ (Negative) A 04/04/25 06:03 Urine Glucose (UA) Negative (Normal) 04/04/25 06:03 Urine Ketones Negative (Negative) 04/04/25 06:03 Urine Blood Negative (Negative) 04/04/25 06:03 Urine Nitrate Negative (Negative) 04/04/25 06:03 Urine Bilirubin Negative (Negative) 04/04/25 06:03 Urine Urobilinogen 0.2 mg/dL (Negative) 04/04/25 06:03 Ur Leukocyte Esterase Negative (Negative) 04/04/25 06:03 Urine RBC 3-5 /hpf (0-2) 04/04/25 06:03 Urine WBC 0-5 /hpf (0-5) 04/04/25 06:03 Ur Squamous Epith Cells 0-5 /hpf (0-5) 04/04/25 06:03 Amorphous Sediment Not Reportable 04/04/25 06:03 Urine Bacteria 1+ /hpf (NONE) H 04/04/25 06:03 Hyaline Casts 14.47 /lpf 04/04/25 06:03 Urine Opiates Screen Negative ng/mL (Negative) 04/04/25 06:03 Ur Barbiturates Screen Negative ng/mL (Negative) 04/04/25 06:03 Ur Phencyclidine Scrn Negative ng/mL (Negative) 04/04/25 06:03 Ur Amphetamines Screen Negative ng/mL (Negative) 04/04/25 06:03 U Benzodiazepines Scrn Negative ng/mL (Negative) 04/04/25 06:03 Urine Cocaine Screen Negative ng/mL (Negative) 04/04/25 06:03 U Marijuana (THC) Screen Positive ng/mL (Negative) H 04/04/25 06:03 All radiology interpretation(s) finalized by discharge EKG Data EKG 1: Interpretation: EKG timed 0436, read 0438. Sinus rhythm rate 60. Normal axis. QTc 446. Other intervals normal. No ST-T wave changes. Discharge Plan Discharge Patient Disposition: Home Clinical Impression: Benign paroxysmal positional vertigo HTN (hypertension) Qualifiers: Hypertension type: primary hypertension Qualified Code(s): I10 - Essential (primary) hypertension Condition: Stable Prescriptions: New meclizine 25 mg tablet 25 mg PO TID Qty: 30 0RF amlodipine 10 mg tablet 10 mg PO DAILY Qty: 30 1RF No Action lisinopril 40 mg tablet 40 mg .ROUTE DAILY Qty: 30 0RF Rx Instructions: 40 mg daily; ibuprofen 800 mg tablet 800 mg PO Q8H PRN albuterol sulfate 90 mcg/actuation HFA aerosol inhaler 1 - 2 puff INHALATION Q4H PRN (Reason: Shortness Of Breath) Qty: 8.5 1RF Discharge Orders: Discharge ED (Routine); Ordered 04/04/25 Ordered By: Joaquin Archibald Referrals: Liu Borrero, COSMETICS COUNTER MANAGER-C [Primary Care Provider, [facility]] - 1-3 days Patient Instructions: Vertigo (ED), Opioid Safety, Pain Management, Patient Portal & Mary Instructions Activity Restrictions/Additional Instructions: Take medication as directed, both for blood pressure and dizziness. Case management will contact you regarding primary care follow-up. Return for new or worsening symptoms despite treatment. Print Language: Burmese Coding Level of Care Code ED Pneumatic Jack Operator for Roxieg Angel NIH stroke score NIHSS Level Of Consciousness - 1a: 0 Level Of Consciousness Questions - 1b: Both Correct Level Of Consciousness Commands - 1c: Both Correct Best Gaze - 2: Normal Visual Lemon - 3: No Visual Loss Facial Palsy - 4: Normal Motor Arm Right - 5: No Drift Motor Arm Left - 5: No Drift Motor Leg Right - 6: No Drift Motor Leg Left - 6: No Drift Limb Ataxia - 7: Absent Sensory - 8: Normal Best Language - 9: No Aphasia Dysarthia - 10: Normal Extinction And Inattention - 11: 0 Score Total Score: 0
[2025-04-04 06:18] LABS: Glucose Urine UA Negative (Normal); Nitrate Urine Negative (Negative); Specific Gravity, Urine 1.016 (1.005-1.030)
[2025-04-04 06:22] LABS: Add Urine Microscopic? YES
[2025-04-04 06:23] LABS: PCP Screen Urine Negative (Negative)
[2025-04-04 07:03] LABS: UA Slide Review UA Slide Review Perf
[2025-04-04] MEDS: potassium chloride oral liq 20 mEq/15 mL UDC 40 MEQ PO (07:35)
== END 2025-04-04 07:46 | disposition home or self-care (01) ==
PROVIDERS: Emergency Provider Emergency Medicine; PCP Nurse Practitioner
DX: H81.10 Benign paroxysmal vertigo, unspecified ear (principal); I10 Essential (primary) hypertension; F12.90 Cannabis use, unspecified, uncomplicated; F17.210 Nicotine dependence, cigarettes, uncomplicated
CPT/HCPCS: 36415; 70450; 80053; 80306; 81001; 83735; 85025; 85610; 85730; 93005; 96374; 96375; 99285; J2060; J8597; J9999

== ENCOUNTER 2025-04-12 17:54 | Emergency (ER) | payer SELFPAY ==
[2025-04-12 17:56] VITALS: BP 185/100; PULSE 95; RESP 16; TEMP 36.2; O2SAT 100; BMI 24.1
--- NOTE | 2025-04-12 18:04 | XRR_ITS ---
PROCEDURE INFORMATION: Exam: XR Chest Exam date and time: 04/12/2025 6:07 PM Age: 60 years old Clinical indication: Other: Dizziness TECHNIQUE: Imaging protocol: Radiologic exam of the chest. Views: 1 view. COMPARISON: CR XR chest 1V portable [id number] 05/30/2021 7:02 AM FINDINGS: Lungs: Unremarkable. No consolidation. Pleural spaces: Unremarkable. No pleural effusion. No pneumothorax. Heart/Mediastinum: Unremarkable. No cardiomegaly. Vasculature: Aortic atherosclerosis. Bones/joints: Mild degenerative changes of the AC joints. XR/XR chest 1V portable [id number] IMPRESSION: No acute findings.
[2025-04-12 18:12] LABS: Hematocrit 47.3 % (36-47); Hemoglobin 15.80 g/dL (11.27-16.99); Mean Corpuscular HGB Conc 33.4 g/dL (30-55); Mean Corpuscular Hemoglobin 27.1 pg (27-33); Mean Corpuscular Volume 81.0 fl (85-98); Nucleated Red Blood Cells % 0 %; Platelet Count 356 10^3/cmm (157-399); Red Blood Count 5.84 10^6/uL (3.85-5.65); White Blood Count 9.11 10^3/uL (3.29-11.43)
--- NOTE | 2025-04-12 18:13 | ED_ITS ---
HPI - Neuro Symptoms/Deficit 2 General: Chief Complaint: Neuro Symptoms/Deficit Stated Complaint: Dizzy, Hypertension History of Present Illness: Patient is a 60-year-old female with history of hypertension, uncontrolled, presents to the emergency room due to dizziness, nauseous, and elevated blood pressure. Patient states compliance to amlodipine for hypertension, however does not have primary care per physician, and states her dizziness, nausea, is worse the last 4 days. Context: Patient arrived via EMS for worsening dizziness today. She has had associated nausea over the last 4 days. She received her amlodipine from a ER physician. No fevers. No neurological changes such as sensation, gait instability. Denies chest pain. Denies abdominal pain. Associated symptoms: Deny chest pain, headache(s) or vertigo Related Data Home Medications ?Medication ?Instructions ?Recorded ?Confirmed ibuprofen 800 mg tablet 800 mg PO Q8H PRN 09/19/21 0 08/26/23 Previous Rx's ?Medication ?Instructions ?Recorded albuterol sulfate 90 mcg/actuation 1 - 2 puff inhalati on Q4H PRN 08/29/22 aerosol inhaler Shortness Of Breath #8.5 gra ms lisinopril 40 mg tablet 40 mg .Route DAILY #30 tabs 08/26/23 amlodipine 10 mg tablet 10 mg PO DAILY #30 tabs 03/14 07/05 meclizine 25 mg tablet 25 mg PO TID #30 tabs amlodipine 10 mg tablet (Norvasc) 10 mg PO DAILY #90 t abs 04/12/25 lisinopril 20 mg tablet 20 mg PO DAILY #90 tabs 03/15 05/07 meclizine 25 mg tablet 25 mg PO TID PRN dizziness # 30 tabs 04/12/25 Allergies Allergy/AdvReac Type Severity Reaction Status Date / Time lactose Allergy Unknown diarrhea Verified 04/12/25 17:56 acetaminophen (From Percocet) Allergy ADR-Dizzine Verified 04/12/25 17:56 ss clobetasol Allergy ALGY-Hives Verified 04/12/25 17:56 codeine Allergy ALGY-Difficulty Verified 04/12/25 17:56 Breathing morphine Allergy ALGY-Difficulty Verified 04/12/25 17:56 Breathing oxycodone (From Percocet) Allergy ADR-Dizzine Verified 04/12/25 17:56 ss prednisone Allergy ALGY-Redness Verified 04/12/25 17:56 of Skin Review of Systems 2 General: Reports: 10 or more systems reviewed and unremarkable except in HPI and below Const: Denies: fever(s) or chills Eyes: Reports: eye discomfort ENMT: Denies: throat pain Card: Denies: chest pain or palpitations Resp: Denies: dyspnea or productive cough GI: Reports: abdominal pain : Reports: flank pain; Denies: difficulty voiding Musc: Reports: back pain Skin/Breast: Denies: rash Neuro: Reports: dizziness; Denies: headache(s), numbness in extremities, weakness in extremities, sensory changes, lack of coordination or vertigo Psych: Denies: depression Jaime/Lymph: Denies: easy bruising All/Imm: Denies: urticaria PFSH ED 2 PFSH: Medical History (Updated 04/12/25 @ 19:34 by CARINA Mirza) Deficient knowledge of leg surgery home care at age 1 Benign cyst of right kidney HTN (hypertension) Surgical History H/O: x 2 H/O bilateral breast reduction surgery H/O oral surgery teeth extraction Family History Father , at age 78 Heart disease Son Anesthesia complication Hypertension Denies family history of Colon cancer Ovarian cancer Diabetes Clotting disorder Hyperlipidemia Breast cancer Bleeding disorder Uterine cancer Thyroid disease Stroke Social History Smoking and tobacco/nicotine status: current every day tobacco/nicotine user cigarettes Years cigarettes smoked: 44 Alcohol intake: never Substance/Drug Use: never Marital status: Physical Exam 2 Const: COMMON NORMALS: no acute distress and alert GENERAL APPEARANCE: c ooperative; not ill appearing and not frail appearing HENMT: COMMON NORMALS: normocephalic, atraumatic and Normal external nose present HEAD & SCALP: normocephalic and atraumatic FACE & SINUS: normal facial exam and face symmetric NOSE: Normal external nose present Eye: COMMON NORMALS: Equal, round and reactive pupils present and EOMs intact bilaterally PUPIL: Yes Equal, round and reactive pupils present Neck/C-Spine: GENERAL: Yes trachea midline Chest: CHEST: Yes Symmetrical chest wall rise Resp: COMMON NORMALS: normal respiratory effort, No retractions, No use of accessory muscles and clear to auscultation bilaterally AUSCULTATION: clear to auscultation bilaterally Cardio: COMMON NORMALS: regular rate and regular rhythm RATE: regular rate RHYTHM: regular rhythm GI: COMMON NORMALS: Normal to inspection, nondistended, normoactive bowel sounds present Extremity: COMMON NORMALS: no pedal edema Neuro: RYAN COMA SCALE: document GCS findings [place] coma scale eye opening: Spontaneous [place] coma scale verbal response: Orientated [place] coma scale motor response: Obey commands [place] coma scale total score: 15 S ENSORIUM/ORIENTATION: Yes alert COORDINATION/BALANCE: [id number] test normal and lime-mf-elka test normal SPEECH: speech normal SENSORY EXAM: Y es extremities (intact) MOTOR EXAM: Pronator motor function not present C OORDINATION: [id number]-[id number] test normal and thlg-hk-[id number] test normal Psych: COMMON NORMALS: speech normal SPEECH: Yes normal speech Skin: COMMON NORMALS: no rashes or lesions noted GENERAL SKIN EXAM: no rashes or lesions noted Course 2 Vital Signs: Vital signs: Vital Signs Temperature 97.2 F L 04/12/25 17:56 Pulse Rate 62 04/12/25 19:11 Respiratory Rate 16 04/12/25 17:56 Blood Pressure 147/81 04/12/25 19:11 Pulse Oximetry 100 04/12/25 19:11 Oxygen Delivery Me thod Room Air 04/12/25 19:11 MDM - Neuro Symptoms/Deficit Medical Decision Making Patient is a 60-year-old female that reports to the emergency room with peripheral vertigo symptoms, and hypertension. Her hypertension is uncontrolled despite taking her amlodipine. She does not follow a low-salt diet. She does not have primary care. Her vertigo is worsening over time. Waxing and waning symptoms. No nausea, no vertigo associated with central symptoms. She has had a recent visit to the ED that has a negative CT of her head. She is improved after Benadryl IV, and IV fluids. IV fluids were given with normal, so that was slightly dry. Additional blood pressure support was given to patient with lisinopril, although she had labetalol x 1 here. Blood pressure is improved. Discussed with patient is important to follow-up with a primary care and obtain a primary care. She has some social issues with not able to obtain Medicaid. Referred to the platemaker that helps with the insurance, that is helping patient and has given her written information. The patient states helpfulness is nice as well. All of her questions answered satisfaction Medical Records I reviewed the patient's medical records. Lab Data I reviewed the patient's lab results. 04/12/25 18:02 04/12/25 18:02 Radiology Impressions Chest X-Ray 04/12/25 18:04 IMPRESSION: No acute findings. Laboratory Results WBC 9.11 10^3/uL (3.29-11.43) 04/12/25 18:02 RBC 5.84 10^6/uL (3.85-5.65) H 04/12/25 18:02 Hgb 15.80 g/dL (11.27-16.99) 04/12/25 18:02 Hct 47.3 % (36-47) H 04/12/25 18:02 MCV 81.0 fl (85-98) L 04/12/25 18:02 MCH 27.1 pg (27-33) 04/12/25 18:02 MCHC 33.4 g/dL (30-55) 04/12/25 18: RDW 13.1 % (12.1-15.1) 04/12/25 18:02 Plt Count 356 10^3/cmm (157-399) 04/12/25 18:02 MPV 8.9 fL (7.4-10.4) 04/12/25 18:02 Neut % (Auto) 56.2 % 04/12/25 18:02 Lymph % (Auto) 36.4 % 04/12/25 18:02 [place] % (Auto) 4.3 % 04/12/25 18:02 Eos % (Auto) 2.1 % 04/12/25 18:02 Baso % (Auto) 0.8 % 04/12/25 18:02 Neut # (Auto) 5.12 10^3/uL (1.8-7.7) 04/12/25 18:02 Lymph # (Auto) 3.3 10^3/uL (0.8-4.8) 04/12/25 18:02 [place] # (Auto) 0.4 10^3/uL (0.2-0.9) 04/12/25 18:02 Eos # (Auto) 0.2 10^3/uL (0.0-0.8) 04/12/25 18:02 Baso # (Auto) 0.1 10^3/uL (0.0-0.1) 04/12/25 18:02 Nucleated RBC % (auto) 0 % 04/12/25 18: Nucleated RBCs # 0.0 /100WBC 04/12/25 18:02 Sodium 137 mmol/L (136-145) 04/12/25 18:02 Potassium 3.5 mmol/L (3.5-5.1) 04/12/25 18:02 Chloride 98 mmol/L (98-107) 04/12/25 18:02 Carbon Dioxide 21 mmol/L (22-29) L 04/12/25 18:02 Anion Gap 21.5 (5-19) H 04/12/25 18:02 BUN 15 mg/dL (8-23) 04/12/25 18: Creatinine 0.8 mg/dL (0.5-0.9) 04/12/25 18:02 GFR Calculation 72.9 mL/min (90-130) L 04/12/25 18: Glucose 120 mg/dL (65-115) H 04/12/25 18: Calculated Osmolality 286 mOsm/kg (285-295) 04/12/25 18:02 Calcium 9.7 mg/dL (8.5-10.5) 04/12/25 18:02 Total Bilirubin 0.4 mg/dL (0.15-1.2) 04/12/25 18:02 AST 14 U/L (0-32) 04/12/25 18:02 ALT 10 U/L (0-33) 04/12/25 18:02 Alkaline Phosphatase 111 U/L (35-105) H 04/12/25 18:02 NT-Pro-B Natriuret Pep 51 pg/mL (0-125) 04/12/25 18:02 Total Protein 7.7 g/dL (6.6-8.7) 04/12/25 18:02 Albumin 4.8 g/dL (3.5-5.2) 04/12/25 18: Globulin 2.9 g/dL (1.3-4.6) 04/12/25 18:02 All radiology interpretation(s) finalized by discharge EKG Data EKG 1: Interpretation: Normal sinus rhythm, normal axis, isoelectric ST segments Discharge Plan Discharge Patient Disposition: Home Clinical Impression: HTN (hypertension) Qualifiers: Hypertension type: primary hypertension Qualified Code(s): I10 - Essential (primary) hypertension Vertigo, peripheral Qualifiers: Laterality: unspecified laterality Qualified Code(s): H81.399 - Other peripheral vertigo, unspecified ear Condition: Stable Prescriptions: New lisinopril 20 mg tablet 20 mg PO DAILY Qty: 90 0RF amlodipine [Norvasc] 10 mg tablet 10 mg PO DAILY Qty: 90 0RF meclizine 25 mg tablet 25 mg PO TID PRN (Reason: dizziness) Qty: 30 0RF No Action lisinopril 40 mg tablet 40 mg .ROUTE DAILY Qty: 30 0RF Rx Instructions: 40 mg daily; ibuprofen 800 mg tablet 800 mg PO Q8H PRN albuterol sulfate 90 mcg/actuation HFA aerosol inhaler 1 - 2 puff INHALATION Q4H PRN (Reason: Shortness Of Breath) Qty: 8.5 1RF meclizine 25 mg tablet 25 mg PO TID Qty: 30 0RF amlodipine 10 mg tablet 10 mg PO DAILY Qty: 30 1RF Discharge Orders: Discharge ED (Routine); Ordered 04/12/25 Ordered By: Ene North Referrals: Liu Borrero, DWIGHTC [Primary Care Provider, [facility]] Discharge Diet: Low Salt Discharge Activity: Resume usual activity Patient Instructions: DASH Eating Plan (ED), Dizziness (ED), Patient Portal & Mary Instructions Activity Restrictions/Additional Instructions: - At the pharmacy: Meclizine, lisinopril, amlodipine. - Meclizine is a powerful medication for motion sickness,-and nausea. - We are unable to refill your lisinopril, and amlodipine on a routine basis. Please obtain a primary care. Case management referral has been made - Benadryl liquid is a good medication to have on hand at home. It can help with dizziness, motion sickness, and nausea. Generic is fine. -Return to ED for emergent issue such as neurological changes with gait disturbances, sensation, or fever greater than 100.4 ?F Thank you for choosing [facility] for your healthcare needs today. You have been screened and evaluated and felt safe for discharge. Health conditions do change or evolve sometimes and as such it is important that you follow up with your Primary Doctor to be re checked, 3-5 days is a general good time frame for follow up. You are always welcome to return to the ED for re assessment if your symptoms are worsening or you have new concerns Print Language: Icelandic Coding Level of Care Code ED Education Analyst for Asa Ortiz
[2025-04-12] MEDS: labetalol 5 mg/mL SDV 20mL 20 MG IVP (18:29)
[2025-04-12] MEDS: diphenhydrAMINE 50 mg/mL SDV 1mL 25 MG IVP (18:30)
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
--- NOTE | 2025-04-12 18:48 | ECG_ITS ---
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 [email or web address]
[2025-04-12 18:51] LABS: Alanine Aminotransferase 10 U/L (0-33); Albumin Level 4.8 g/dL (3.5-5.2); Alkaline Phosphatase 111 U/L (35-105); Anion Gap 21.5 (5-19); Aspartate Amino Transferase 14 U/L (0-32); Blood Urea Nitrogen 15 mg/dL (8-23); Calcium 9.7 mg/dL (8.5-10.5); Carbon Dioxide 21 mmol/L (22-29); Chloride 98 mmol/L (98-107); Globulin 2.9 g/dL (1.3-4.6); Glucose 120 mg/dL (65-115); NT Pro B Type Natriuretic Pept 51 pg/mL (0-125); Osmolality Calculated 286 mOsm/kg (285-295); Potassium 3.5 mmol/L (3.5-5.1); Sodium 137 mmol/L (136-145); Total Protein 7.7 g/dL (6.6-8.7)
--- NOTE | 2025-04-12 19:08 | PC.NURSE ---
Assumed pt.care Pt. reports pain in left lower leg that is painful to touch. pt. reports elevated bp at home 200/110 Pts. current bp 147/81 after meds.
[2025-04-12 19:11] VITALS: BP 147/81; PULSE 62; O2SAT 100
[2025-04-12 19:59] VITALS: BP 146/78; PULSE 72; RESP 17; O2SAT 100
== END 2025-04-12 20:00 | disposition home or self-care (01) ==
PROVIDERS: Emergency Provider Physician Assistant; PCP Nurse Practitioner
DX: H81.399 Other peripheral vertigo, unspecified ear (principal); I10 Essential (primary) hypertension; F17.210 Nicotine dependence, cigarettes, uncomplicated
CPT/HCPCS: 71045; 80053; 83880; 85025; 93005; 96374; 96375; 99285; J1200; J3490; J7030